=== PATIENT | female | born 1970 | race Caucasian/White ===

== ENCOUNTER 2025-05-30 00:29 | Day surgery (SDC) | payer OTHER, SELFPAY ==
[2025-05-25 10:46] VITALS: BMI 21.2
--- NOTE | 2025-05-25 10:47 | PC.NURSE ---
Report to the Outpatient Waiting Room, entrance under the green pavilion located off [facility], at time _1130_ on date _[id number]_. Planned Procedure Time: _130pm_.? Time changes happen often and if your time is changed the preop area will call you the afternoon before. - You and your visitor will be asked to self-screen and do not enter if you have any COVID symptoms. Please call surgeon if you need to reschedule. - A mask is optional within the hospital at this time. Patients may have clear liquids (water, carbonated beverages, clear teas, apple juice) until 3 hours prior to surgery with a maximum of 20 ounces. - No food from midnight until time of surgery and no smoking, or chewing tobacco (or any form of nicotine). No chewing gum, candy or mints. Take only the following medications with a SIP of water on the morning of surgery: DO NOT STOP ANY OF YOUR OTHER PRESCRIPTION MEDICATIONS PRIOR TO SURGERY EXCEPT THE FOLLOWING Hold all vitamins and supplements for 3 days per anesthesiologist. Medications to discontinue per physician Date to take last dose Please no make-up, nail syriac, hairspray, perfume, deodorant, or body powder the day of surgery.? No jewelry (including any body piercings) or valuables the day of surgery, leave them at home.? Please take a shower or bath the night before, or the morning of, surgery with an antibacterial soap.? Wear comfortable, loose fitting clothing.? - Jewelry must be removed prior to entering the operating room.? Rings and piercings that are not removed may be cut off. - The hospital will not accept responsibility for valuables.? - Please leave all valuables, including medications, at home the day of surgery. If you are going home after surgery, a licensed double bottom driver must drive you home.? - NO public transportation without another adult if you receive anesthesia. - We recommend that an adult stay with you for 24 hours following discharge. - We also recommend that you do not drive, make important decision, drink alcoholic beverages, or take any drugs that were not prescribed by your health care provider for at least 24 hours after your discharge time. Follow any additional instructions given to you from your surgeon. Telephone instructions given to __Johnnyn___and asked if any additional questions and then verbalized understanding. Patient advised to call surgeon office or pre surgery nurse liaison [phone] if any additional questions.
[2025-05-30] VITALS (7 sets, daily range): BP systolic 120–143; BP diastolic 75–82; PULSE 63–74; RESP 14–16; TEMP 36.6–36.8; O2SAT 98–100; BMI 20.1
--- OUTSIDE RECORDS SUMMARY | 2025-05-30 00:32 | XMS_ITS | Referral Summary ---
Author Organization [facility] [address] [place] [address] Care Team Providers Care Scheme Technician Name Role Phone Liang Keturah LINDQUIST Primary Care Provider [phone] Allergies No known active allergies Medications simvastatin (ZOCOR) 10 mg tablet Take 10 mg by mouth nightly Active nebivoloL (BYSTOLIC) 10 mg tablet Bystolic 10 mg tablet Active Active Problems Problem Noted Date Diagnosed Date Seasonal allergic rhinitis due to pollen 022 Assessment & Plan (07/01/2022 7:45 PM CDT): She typically does well with a Kenalog steroid shot. She would like to have that today. I discussed the risks of steroids including the risk of immune suppression, exacerbation of cataracts, potential blood clots and DVTs, hip necrosis and osteoporosis. She understands this. She wanted to and received a steroid shot today. I recommended taking ofck-dvv-citruib allergy medications as needed. Follow-up as needed. Nasal obstruction 07/01/2022 Assessment & Plan (07/01/2022 7:45 PM CDT): She has a pretty clear nasal airway. No recommendations other than potentially trying a steroid nasal spray. 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 Gender Identity Not on file Sexual Orientation Not on file Last Filed Vital Signs Vital Sign Reading Time Taken Comments Blood Pressure - - Pulse - - Temperature 36.8 C (98.3 F) 07/18/2020 8:24 AM CDT Respiratory Rate 18 07/05/2024 4:03 PM CDT Oxygen Saturation - - Inhaled Oxygen Concentration - - Weight 65.8 kg (145 lb) 07/05/2024 4:03 PM CDT Height 170.2 cm (5' 7) 07/05/2024 4:03 PM CDT Body Mass Index 22.71 07/05/2024 4:03 PM CDT Plan of Treatment Not on file [place] [address] [address] CHOICE PLUS [place] [id number] Care Teams Scheme Technician Relationship Specialty Start Date End Date Keturah Tavera NP [address] [place] [id number] PCP - General Nurse Practitioner 07/11/20
--- OUTSIDE RECORDS SUMMARY | 2025-05-30 00:32 | XMS_ITS | Encounter Summary ---
Author Organization [facility] Address 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
--- OUTSIDE RECORDS SUMMARY | 2025-05-30 00:32 | XMS_ITS | Continuity of Care Document ---
Author Organization [facility] Address [address] [place] [address] Phone Care Team Providers Care Waiter/Waitress Cocktail Lounge Name Role Phone Bipin Stark MD, MD Unavailable Unavailable Allergies, Adverse Reactions, Alerts Substance Reaction Status Criticality No Known Allergies Active No Inform ation Medications Medication Instructions Dosage Effective Dates (start - stop) Status Comments METOPROLOL SUCCINATE (unknown strength) Not Available - Active SIMVASTATIN (unknown strength) Not Available - Active INTROVALE (unknown strength) Not Available - No Longer Active Procedures Procedure Date Kenalog 10mg/mL Asp/Injection Intermediate Joint, W/ Ult rasound Office/outpatient visit,est, mod 2021 Global/Postop followup visit Single Hinge Elbow Brace [employer] [place] Arm Sling Global/Postop followup visit Office/outpatient visit,est, mod 2019 Office/outpatient visit,est, mod 2019 Asp/Injection Intermediate Joint, W/ Ult rasound Office/outpatient visit,new, mod 2019 Kenalog Triamcinolone acetonide inj Advance Directives Directive Yes / No Effective Date File Name No Information Encounters Encounter Description Practice Location Reason(s) For Visit Diagnoses Date Provider Providers Copied on Encounter Office/outpa tient visit,est, mod [facility], [address], [id number], [place] tel:[phone] [facility] left elbow pain (chief complaint) Lateral epicondylitis, left elbow May- 2 [address]. [address] [address], [place], [place], [id number] , [place]. 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 [address] [address], [place], [place], [id number] , [place]. tel: [phone] [facility], [address], [id number], [place] [phone] [facility] Lateral epicondylitis, right elbow 1 [address] [facility] [address], [place], [place], [id number] , [place]. 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 [address] [address], [place], [place], [id number] , [place]. tel: [phone] Office/outpa tient visit,est, mod [facility], [address] [address], [place], [place], [id number], [place] tel:[phone] [facility] Outpatient right elbow pain (chief complaint) Lateral epicondylitis, right elbow Dec- 0 [facility] [address] [address], [place], [place], [id number] , [place]. tel: [phone] Referring Provider: Bipin Correa, [address] [address], [place], [address] . tel:[phone] [facility], [address] [address], [place], [place], [id number], [place] [phone] [facility] Lateral epicondylitis, right elbow Dec-2 0 [address] [address], [place], [place], [id number] , [place]. tel:[phone] [facility], [address], [id number], [place] tel:[phone] [facility] Lateral epicondylitis, right elbow Dec-0 [address] [place] [address], [place], [place], [id number] , [place]. tel:[phone] Office/outpa tient visit,[facility], [address] [place] [address], [id number], [place] [phone] [facility] Outpatient right elbow pain (chief complaint) Lateral epicondylitis, right elbow [address], [id number] , [place]. tel: [phone] Referring Provider: Bipin Correa, [address] [place] [address], [place], [address] . tel:[phone] Office/outpa tient visit,[facility], [address], [id number], [place] [phone] [facility] Outpatient right elbow pain (chief complaint) Lateral epicondylitis, right elbow [address] [place] [address], [id number] , [place]. tel: [phone] Family History Family Member Type Diagnosis Age At Onset Problem (finding) Family history of Diabe tae mellitus Problem (finding) Family history of hyper tension Problem (finding) Family history of Lymph sai Payers Payer name Insurance type Covered democrat ID Authoriza tion(s) [facility] [id number] Social History Type Description Quantity Date Captured Comments Alcohol Use Details Caffeine Use Details Unknown Tobacco Use Status Current non-smoker Smoking Status Never smoker Non-Smoking Tobacco Use Details : No Details Available : No Details Available Sex Female Vital Signs Date / Time: Height Weight BMI Pulse Rate Blood Pressure Temperature Respiratory Rate Body Surface Area Head Circumference Head Circ. Percentile Wt./[place]. Percentile BMI percentile Pulse Ox Inhaled Ox 8:39 AM 67.00 in 65.771 kg (145.00 lbs) 22.7 1 kg/m eter (2) 1.76 meter(2) Chief Complaint And Reason For Visit From encounter dated '05/13/2022 09:15'. left elbow pain (chief complaint). Description: Kimberly Costa is a 51 year old female. She is right handed. She is now 18 months from tennis elbow surgery on the right which has done well. She now presents with issues on the left. She presents with pain on the left side. She states that the symptoms have been acute non-traumatic and began 6 months ago. The symptoms occur intermittently. The problemis fluctuating. Currently the patient states that the symptoms are moderate. The pain is described as aching, stabbing, superficial and throbbing. The symptoms occur with activity. The patient is experiencing pain in the following location: lateral region on the left side. The symptoms are aggravated by daily activities, exercise, lifting, repetitive activities, rotation and sports. Kimberly states that the symptoms are relieved by ice, rest and stretching. Pertinent negatives include bruising, fever, joint instability, locking and tingling in the arms. The patient has had a previous x-ray. She has had rest, ice, OTC meds, her home stretching/strengthening program from the other side. Patient has not had any pertinent therapy for this condition. There were no previous episodes. Reason For Referral Reason For Referral No Information Plan Of Treatment Date Type Action Status Referral Ordered: MRI Upper extr joint, w/o contrast RT elbow Appointment date/timeframe: 10/03/2020 ordered Future Order: Lab Order Basic Ri tabolic Panel (BMP), Ordered on: Ordered History Of Present Illness Encounter Date Complaint History Of Prese nt Illness left elbow pain Kimberly Costa is a 51 year old female. She is right handed. She is now 18 months from tennis elbow surgery on the right which has done well. She now presents with issues on the left. She presents with pain on the left side. She states that the symptoms have been acute non-traumatic and began 6 months ago. The symptoms occur intermittently. The problem is fluctuating. Currently the patient states that the symptoms are moderate. The pain is described as aching, stabbing, superficial and throbbing. The symptoms occur with activity. The patient is experiencing pain in the following location: lateral region on the left side. The symptoms are aggravated by daily activities, exercise, lifting, repetitive activities, rotation and sports. Kimberly states that the symptoms are relieved by ice, rest and stretching. Pertinent negatives include bruising, fever, joint instability, locking and tingling in the arms. The patient has had a previous x-ray. She has had rest, ice, OTC meds, her home stretching/strengthening program from the other side. Patient has not had any pertinent therapy for this condition. There were no previous episodes. elbow The patient retu rns 6 weeks from the above procedure. The patient has done well in the interim and notes no wound/skin problems, wound drainage, new neurological complaints, or abnormal swelling/calf pain. They have been compliant with the prescribed weight bearing status per the patient's report and use of the sling. They have progressed well with prescribed physical therapy. elbow The patient retu rns 2 weeks from the above procedure. They note no fevers, chills, night sweats, abnormal swelling or calf pain. They have been compliant with physical therapy guided rehabilitation per their report. They note appropriate use of the sling as instructed. No other immediate post operative issues are noted. right elbow pain She presents wi th pain on the right side. She states that the symptoms have been chronic non-traumatic. The symptoms occur constantly with intermittent worsening. The problem is worse. Currently the patient states that the symptoms are incapacitating. The patient is experiencing pain in the following location: lateral region on the right side. The symptoms are aggravated by daily activities, lifting, repetitive activities and rotation. The patient has had a previous x-ray and MRI. 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 She has had cortisone injection (January 26), physical therapy, icing, OTC meds. right elbow pain The patient not es good relief after a prior cortisone injection in January to the area, but pain has returned. She presents with pain on the right side. The symptoms occur intermittently. Currently the patient states that the symptoms are moderate-severe. The pain is described as aching and sharp. The patient is experiencing pain in the following location: lateral region on the left side. The symptoms are aggravated by daily activities, lifting, repetitive activities and rotation. Kimberly states that the symptoms are relieved by ice, injections, nsaids and physical therapy. Pertinent negatives include decreased mobility, fever, locking, numbness and tingling in the arms. The patient has had a previous x-ray. She has had cortisone injection (January 26), physical therapy, icing, OTC meds. right elbow pain She presents wi th pain on the right side. She states that the symptoms have been acute non-traumatic and began 4 months ago. The symptoms occur intermittently. The problem is fluctuating. Currently the patient states that the symptoms are moderate. The pain is described as aching, stabbing, superficial and throbbing. The symptoms occur with activity. The patient is experiencing pain in the following location: lateral region on the right side. The symptoms are aggravated by daily activities, exercise, lifting, repetitive activities, rotation and sports. Kimberly states that the symptoms are relieved by ice, rest and stretching. Pertinent negatives include bruising, fever, joint instability, locking and tingling in the arms. Prior NSAIDs include prednisone dosepak. She has had no previous treatment. Patient has not had any pertinent therapy for this condition. Patient has had no prior surgeries. There were no previous episodes. Functional Status Date Functional Assessmen t No Information Instructions Date Instruction Additional Infor brandi The patient would li ke to proceed with non op treatments. We discussed the risks, benefits, and alternatives of a minor procedure in the form of an injection. She would like to proceed. A prescription was offered for physical therapy but given her extensive experience she declined and will do the exercises on her own. We discussed instructions on an oral anti-inflammatory with approval of the patient's PCP. Icing instructions were also provided. We discussed the role of counterforce bracing and if indicated this will be provided as well. If not improved in 6 weeks, or sustained relief is not achieved, then she is going to contact me and at that point we would obtain an MRI to confirm the diagnosis and consider PRP vs. surgery. We discussed if symptoms resolve we will see the patient back on an as needed basis. The patient understood, was happy with the plan, and had all questions answered in the office today. Related to Lateral epicondylitis, left elbow They may discontinue the brace at this point and progress to active motion of the elbow. They will WBAT and progress to the strengthening/functional progression phase of physical therapy guided rehabilitation. I would like to see them back in 6-8 weeks for repeat evaluation and likely return to full activities at that time. Questions answered, verbalized understanding. Related to Encounter for other orthopedic aftercare The details of the p rocedure performed we discussed in detail with the patient. We discussed the patient's recovery is on pace with would be typically be expected. Continue the brace at this point and progress through PT per protocol. I would like to see them back in 4 weeks for repeat evaluation and likely return to full activities at that time. Questions answered, verbalized understanding. Related to Encounter for other orthopedic aftercare We discussed the ris ks, benefits, and alternatives to surgery. We discussed in detail the perioperative restrictions, rehabilitation, and expected outcomes for the procedure as well as possible complications including but not limited to: , DVT/PE, heart attack, stroke, other medical complication, infection, injury to nerves, blood vessels, and soft tissues, continued pain, perceived failure of the surgery, and the possible need for further surgery in the future. The patient expressed their understanding and has elected to proceed at their earliest convenience. Medical clearance will be obtained as appropriate. Questions answered, verbalized understanding. Related to Lateral epicondylitis, right elbow Given the failure of traditional treatments with now a year of symptoms we discussed I would like to obtain an MRI of the right elbow to confirm the diagnosis and rule out other pathology, specifically a tear of the ECRB. We discussed the need for continued ice, activity modifications, and over the counter pain medications as allowed by the patient's PCP. I have recommended avoidance of painful occupational, recreational, and daily living activities pending results. I will see the patient back in the office once results are available and we will discuss further treatment options, both non-surgical or surgical, as indicated. Questions answered, verbalized understanding. Related to Lateral epicondylitis, right elbow The patient would li ke to proceed with an injection. A prescription was given for physical therapy and instructions on an oral anti-inflammatory with approval of the patient's PCP. Icing instructions were also provided. We discussed the role of counterforce bracing and if indicated this will be provided as well. The patient will return in 4-6 weeks if not improved or sustained relief is not achieved. We discussed if symptoms resolve we will see the patient back on an as needed basis. The patient understood, was happy with the plan, and had all questions answered in the office today. Related to Lateral epicondylitis, right elbow Assessments Type Assessment Date assessment Lateral epicondylitis, left elbo w impression We discussed in julian pa the symptoms, causes, treatment options, and expected outcomes of the patient's lateral epicondylitis. We discussed the initial non-operative management strategies, including physical therapy and home stretching/strengthening exercises, injections including cortisone and platelet-rich plasma and the pros and cons of each as well as the general limit of two cortisone injections and the rationale for this. We discussed the role of counterforce bracing, and the judicious use of anti-inflammatory medications with the approval of the patient's primary care physician. We discussed that only after the failure of non-operative treatment, which is uncommon, would surgical intervention be indicated, and we discussed the option of arthroscopic vs. open surgery if needed. After a thorough discussion, we have elected to proceed with the following plan. Patient Care Teams Name Effective Dates (start - stop) Status Members No Information
--- OUTSIDE RECORDS SUMMARY | 2025-05-30 00:32 | XMS_ITS | Encounter Summary ---
Author Organization [facility] Address 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
--- OUTSIDE RECORDS SUMMARY | 2025-05-30 00:32 | XMS_ITS | Encounter Summary ---
Author Organization [facility] Address [address] [place] [address] Care Team Providers Care Chief Of Production Name Role Phone Renny Hutchins MD Primary Care Provider Unavailable Encounter Details Date Type Department Care Team (Latest Contact Info) Description 08/12/2000 Outpatient Historical [facility] Sena Salomon MD NO ADDRESS ON FILE Female infertility associated with anovulation (Primary Dx) Social History Tobacco Use Types Packs/Day Years Used Date Smoking Tobacco: Never Assessed Comments Unknown Sex and Gender Information Value Date Recorded Sex Assigned at Not on file Legal Sex Female 3:24 AM [employer] Gender Identity Not on file Sexual Orientation Not on file documented as of this encounter Plan of Treatment Not on file documented as of this encounter Visit Diagnoses Diagnosis Female infertility associated with anovulation- Primary documented in this encounter Care Teams Chief Of Production Relationship Specialty Start Date End Date Renny Hutchins MD NO ADDRESS ON FILE PCP - General 06/09/00 documented as of this encounter
--- OUTSIDE RECORDS SUMMARY | 2025-05-30 00:32 | XMS_ITS | Data Portability ---
Author Organization [facility] , [facility] Address [address] [place] [address] Assessment No assessment recorded. Plan of Treatment Reminders Order Date Submit Date Provider Last Modified By Organization Details Last Modified Time Details Appointments None record ed. Lab None record ed. Referral None record ed. Procedures None record ed. Surgeries None record ed. Imaging None record ed. Medication Orders None record ed. Patient TargetsNo targets recorded. Patient Instructions Encounter Date Encounter Id Patient Instructions Last Modified By Organization Details Last Modified Time 04/29/2023 [id number] A healthy lifestyle: care instructions [email or web address] Not available 04/29/2023 09:21:58 calcium and vitamin D combination [email or web address] Not available 04/29/2023 09:21:58 depression (wome n only) [email or web address] Not available 04/29/2023 09:21:58 eating healthy foods: care instructions [email or web address] Not available 04/29/2023 09:21:58 exercise program : getting started [email or web address] Not available 04/29/2023 09:21:58 breast self-exam : care instructions [id number] Not available 04/29/2023 09:21:58 05/03/2024 [id number] A healthy lifestyle: care instructions [email or web address] Not available 05/03/2024 09:49:35 calcium and vitamin D combination [email or web address] Not available 05/03/2024 09:49:36 depression (wome n only) [id number] Not available 05/03/2024 09:49:35 eating healthy foods: care instructions [email or web address] Not available 05/03/2024 09:49:36 exercise program : getting started [email or web address] Not available 05/03/2024 09:49:36 protect bone wit h calcium and vitamin D [email or web address] Not available 05/03/2024 09:49:35 osteoporosis education [id number] Not available 05/03/2024 09:49:35 breast self-exam : care instructions [email or web address] Not available 05/03/2024 09:49:35 Reason for Referral None Reported. Results Created Date Observation Date Name Description Value Unit Range Abnormal Flag Note LastModifiedBy Organization Detail LastModifiedTime 04/13/2004/13/2023 MAMMO , scree corrie, digit al, bilat eral No observ ation record ed. [email or web address] [facility] [address] [place] [address], [address], 04/13/2023 16:06:14 04/15/20 24 04/14/2024 MAMMO , scree corrie, digit al, bilat eral No observ ation record ed. [facility] [address] [place], [address], 05/02/2024 14:06:22 Result Notes None recorded. Problems No Known Problems Procedures Surgical History Date Name Laterality Status Provider Name and Address Organization Details Recorded Time 06/28/20 24 Urodynamic Testing completed Shantell Menon [facility] 06/28/2024 17:21:21 04/14/20 24 Most Recent Mammogram completed JILL Quigley [address] [facility], [place], [address], [facility] 04/29/2024 12:29:53 04/23/20 22 Date of Last Pap Smear completed Andria Preciado [facility] 08/08/2024 17:06:50 Breast Augmentation completed [facility] 04/22/2023 15:18:10 D & C completed [facility] 04/22/2023 15:18:10 Imaging Results None recorded. Procedure Notes None recorded. Medical Equipment None Reported. Allergies No known drug allergies Medications Name Sig Start Date Stop Date Status Note LastModified by Organization Details LastModified Time esme corral acetonide 0.5 % topical cream APPLY CREAM TOPICALL Y TO AFFECTED AREA TWICE DAILY 04/29 completed Not Available Not Available Not Available oxybutyni n chloride ER 10 mg tablet,ex tended release 24 hr Take 1 tablet every day by oral route. active Not Available Not Available No t Available metoprolo l succinate ER 50 mg tablet,ex tended release 24 hr 25 mg by oral route. active Not Available Not Available No t Available valacyclo vir 1 gram tablet TAKE ONE TABLET BY MOUTH ONCE DAILY active Not Available Not Available No t Available simvastat in 10 mg tablet Take 10 mg by oral route. 08/08 completed Not Available Not Available Not Available paroxetin e 20 mg tablet 05/03 completed Not Available Not Available Not Available simvastat in 20 mg tablet TAKE 1 TABLET BY MOUTH EVERY EVENING active Not Available Not Available No t Available orphenadr ine citrate ER 100 mg tablet,ex tended release TAKE ONE TABLET BY MOUTH TWICE DAILY NEEDED FOR 7 DAYS 06/13 completed Not Available Not Available Not Available buspirone 7.5 mg tablet 04/29 completed Not Available Not Available Not Available methylpre dnisolone 4 mg tablets in a dose pack TAKE BY MOUTH DIRECTED ON INSIDE OF PACKAGE 04/29 completed Not Available Not Available Not Available naproxen 500 mg tablet TAKE ONE TABLET BY MOUTH TWICE DAILY FOR 7 DAYS WITH FOOD 06/13 completed Not Available Not Available Not Available buspirone 15 mg tablet 06/13 completed Not Available Not Available Not Available escitalop lalita 10 mg tablet 06/13 completed Not Available Not Available Not Available Aneta 0.35 mg tablet Take by oral route. 05/03 completed Not Available Not Available Not Available Jolessa 0.15 mg-30 mcg (91) tablets,3 month dose pack Take 1 tablet(s ) by mouth daily as directed . 04/24 completed Jolessa 0.15 mg-30 mcg (91) oral Tablet, Dose Pack, 3 Months RxNorm: 499566 Allow Substitu tion: True Refill Denied: No Edited by: April Pérez ) on 04/26/20 21 Stopped by: April Pérez ) on Not Available Not Available Not Available Jolessa 08/03/ 2016 01/24 /2017 completed Pritijosefinaignacia Extended Cy/30mcg /0.15mg Tablet Allow Substitu tion: True Refill Denied: No Not Available Not Available Not Available Bystolic 5 mg tablet 05/03 completed Bystolic 5 mg oral tablet RxNorm: [id number] Allow Substitu tion: True Refill Denied: No Refill DateOccu rred: 06/11/20 16 Edited by: April Pérez ) on 04/26/20 21 Stopped by: April Pérez ) on Not Available Not Available Not Available Slynd 4 mg (28) tablet Take 1 tablet every day by oral route. 04/28 completed Not Available Not Available Not Available Vitals Date Recorded Body height Body mass index (BMI) Body weight Systolic And Diastolic Provider Name and Address Organization Details Last Updated DateTime 04/29/2023 170.18 cm 24.3 kg/m2 98332.82 g 116/74 mm[Hg] Maria Luisa Shine [facility] 04/29/2023 09:09:51 Date Recorded Body weight Body mass index (BMI) Body height Systolic And Diastolic Provider Name and Address Organization Details Last Updated DateTime 05/03/2024 74339.86 g 23.5 kg/m2 170.18 cm 110/72 mm[Hg] Luana Martinez [facility] 05/03/2024 09:31:18 Date Recorded Body height Body mass index (BMI) Body weight Body temperature Systolic And Diastolic Provider Name and Address Organization Details Last Updated DateTime 06/13/2024 170.18 cm 23.9 kg/m2 71144.9 1 g 97.7 [degF] 120/90 mm[Hg] [facility] 10:26:44 Date Recorded Body height Body mass index (BMI) Body weight Systolic And Diastolic Provider Name and Address Organization Details Last Updated DateTime 08/08/2024 170.18 cm 22.7 kg/m2 15939.89 g 118/68 mm[Hg] Andria Preciado [facility] [employer] [facility] 08/08/2024 17:06:21 Social History Question Answer Notes LastModified by Organizat ion Details LastModified Time Tobacco Smoking Status Never Smoker Maria Luisa Shine [facility], [facility] 04/22/2023 15:18:06 How Many Years Have You Consumed Alcohol? 30 [email or web address] Information not available 04/22/2023 Are You Blind Or Do You Have Difficulty Seeing? No Information not available 05/03/2024 Are You Deaf Or Do You Have Serious Difficulty Hearing? No Information not available 05/03/2024 What Type Of Diet Are You Following? REGULAR [email or web address] Information not available 04/22/2023 How Many Children Do You Have? 1 Information not available 03/30/2022 Are There Any Occupational Health Risks Where You Work? No Information not available 05/03/2024 What Is Your Relationship Status? Information not available 03/30/2022 Are You Sexually Active? Yes Information not available 03/30/2022 What Types Of Sporting Activities Do You Participate In? Swimming And Fitness Classes Information not available 05/03/2024 Sex: Female Functional Status Question Answer Note LastModified by Organizat ion Details LastModified Time Do you use any illicit or recreational drugs? No Information not available 05/03/2024 What is your level of alcohol consumption? Occasional [email or web address] Information not available 04/22/2023 Are you currently employed? 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 Never used electronic cigarettes [email or web address] Information not available 04/22/2023 What is your exercise level? Moderate [email or web address] Information not available 04/22/2023 Mental Status None recorded. Family History Relationship Description Onset Age of this Age Resolved Age Notes LastModified by Organization Details LastModified Time Father Hypertensive disorder [email or web address] Not available 2021 12:48:06 Father Type 2 diabetes mellitus [email or web address] Not available 2023 09:21:56 Father Malignant neoplastic disease [email or web address] Not available 04/22 15:17:51 Medical History Condition Response Other Cancer N High Blood Pressure Y Colon Cancer N Cytomegalovirus N Hyperthyroidism N Breast Cancer N Herpes (HSV) N MRSA N Blood Transfusion N Lung Cancer N Hypothyroidism N Depression N Incontinence N Panic Attacks N Neurological Disorder N Deep Vein Thrombosis N Anxiety Disorder N Autoimmune disease N Arthritis N Shingles N Tuberculosis/Positive PPD N Polycystic Ovarian Syndrome N Cervical Cancer N Chlamydia N Hematuria N Varicosities N Stroke N Crohn's Disease N Seasonal allergies N Alzheimer's/Dementia N COPD/Emphysema N Endometriosis N HPV/Genital Warts N IBS (Irritable Bowel Syndrome) N History of Abnormal Pap N High Cholesterol Y Liver Disease N Fibromyalgia N Kidney Infection N Ulcer N Kidney Disease N HIV N Gallbladder disease N Sickle Cell Disease/Trait N Von Willebrand disease N ADD/ADHD N Eating Disorder N Anemia N Diabetes Mellitus (non-insulin dependent ) N Multiple Sclerosis N Ovarian Problems N Gonorrhea N Frequent Urinary Tract infections N Osteopenia N Headaches/migraines N GERD (reflux) N Ovarian Cancer N Diabetes (insulin dependent) N Seizures/Epilepsy N Fibroids N Asthma N Heart Attack N Lupus N Endometrial Cancer N Rubella N Blood Clotting Disorder N Bipolar Disorder N Diabetes Mellitus (during ) N Ulcerative Colitis N Hepatitis N Heart Disease N Pulmonary Embolism N RPR N Chicken Pox Y Osteoporosis N Gynecological History Statement/Question Response Flow Heavy Date of last HPV 04/23/2022 Frequency of Cycle (Q days) 30 Date of LMP 06/07/2024 Date of Last Pap Smear 04/23/2022 Duration of Flow (days) 6-7 Most Recent Mammogram 04/14/2024 Current Control Method None Age at Menarche 14 Obstetrics History GPAL:G 3 P 1 0 2 1 Type Value Full Term 1 Spontaneous 2 Living 1 Total 3 Past Encounters Encounter ID Performer Location Encounter Start Date Encounter Closed Date Diagnosis/Indication Diagnosis SNOMED-CT Code Diagnosis ICD10 Code Diagnosis Note [id number] JILL Quigley [facility] [address] [place] [address] 04/23/2022 13:57:10 04/23/2022 14:17:27 Surveillance of oral contraception 134967655 Z30.41 Will switch to Progestero ne only method d/t age Gynecologi c examination 35312140 Z01.419 Screening for malignant neoplasm of cervix 585737262 Z12.4 Screening for malignant neoplasm of breast 973520858 Z12.39 Screening for osteoporosis 582712419 Z13.086 [id number] JILL Quigley [facility] [address] [place] [address] 04/29/2023 09:06:14 04/29/2023 09:22:07 Gynecologic examination 26646667 Z01.419 52y.o. here for annual exam.- Pap up to date from 2021, discussed natural course of HPV infection, no new exposures. - Routine labs done with PCP- Mammo UTD- Cologuard UTD- DEXA at age 65- RTO for annual or PRN Screening mammography of bilateral breasts 2549090894 51540 Z12.31 Client advised to perform self-breas t exams and report any changes. Depression screening 171 067875 Z13.31 PHQ9: Negative. Pt educated on normal scoring. No further management needed. [id number] JILL Quigley [facility] [address] [place] [address] 05/03/2024 09:21:55 05/03/2024 09:59:13 Gynecologic examination 23724824 Z01.419 53y.o. here for annual exam.- Pap up to date from 2021, discussed natural course of HPV infection, no new exposures. - Routine labs done with PCP- Mammo UTD- Cologuard UTD- DEXA at age 65- RTO for annual or PRN Screening for osteoporosis 718725448 Z13.820 Depression screening 171 418893 Z13.31 PHQ9: Negative. Pt educated on normal scoring. No further management needed. Screening mammography of bilateral breasts 1901141226 52192 Z12.31 Client advised to perform self-breas t exams and report any changes. Female str ess incontinence 79238436 N39.3 Discussed carmen burroughs Urology referral. Would like to discuss with her PCP to see if there is Urologist in [place]. If not, she will call back for referral [id number] Alonso Blair, [facility] [address] [place] [address] 06/13/2024 10:07:55 06/13/2024 14:37:02 Genuine stress incontinence 93950897 N39.3 Discussed symptomato logy and various treatment options like mesh insertion, Bulkamid procedure. Explained Bulkamid procedure in detail to the patient, all questions answered.A dvised to continue Kegel exercise postproced ure.Schedu le UDT and notify the patient and then schedule Bulkamid/c ysto. [id number] Alonso Blair, DO [facility] [address] [place] [address] 06/28/2024 16:51:29 07/06/2024 14:17:31 Genuine stress incontinence 88925717 N39.3 [id number] Alonso Blair, DO [facility] [address] [place] [address] 08/08/2024 16:52:34 08/09/2024 12:38:20 Postoperative visit 568571145 Z09 The Bulkamid procedure has resulted in significan t improvemen t in her symptoms. However, she continues to experience leakage when her bladder is full. To address this, we will initiate treatment with oxybutynin extended-r elease, which will help to reduce bladder spasms and urgency. The importance of pelvic floor muscle exercises (Kegels) and bladder training was reinforced . The patient was advised that while surgical options exist to further strengthen the urethral sphincter, these procedures carry a risk of urinary retention and are not recommende d at this time. Health Concerns Section Related Observation LastModified by Organization Detai ls LastModified Time None Recorded Concern Status LastModified by Organization Details LastModified Time None Recorded Advance Directives Directive None Recorded Payers Insurance Date Sequence Insurance Name Policy Number Policy Bourne Covered Member ID Bourne Member ID Guarantor Name 08/09/2024 1 [facility] [id number] Kimberly Costa [id number] Kimberly Costa Notes Date Note Type Note Provider Name and Address Organization Details Recorded Time 3 text/html Annual GYNReported bypatient.Urinary symptoms:No hematuria; No incontinence Vulva:No genital lesion Vagina:Normal vaginal discharge Breast:No breast pain; No breast lump; No nipple discharge Sexual complaints:No sexual complaints; No pain during intercourse; Normal libido Menopausal Symptoms:No menopausal symptoms; Normal vaginal lubrication Psychological symptoms:No depression; No anxiety; No PMDD Kimberly is here for her AEX. Her last pap was 04/23/22 Neg/HPV Neg. She is UTD on her mammogram. She had Cologuard performed April Moore JILL [address] [place], [address], [facility] 04/29/2023 09:22:01 4 text/html Annual GYNReported bypatient.Urinary symptoms:No hematuria;Stress incontinence Vulva:No genital lesion Vagina:Normal vaginal discharge Breast:No breast pain; No breast lump; No nipple discharge Sexual complaints:No sexual complaints; No pain during intercourse; Normal libido Menopausal Symptoms:No menopausal symptoms; Normal vaginal lubrication Psychological symptoms:No depression; No anxiety; No PMDD Kimberly is here for her AEX. Her last pap was 04/23/22 Neg/HPV Neg. She is UTD on her mammogram. She had Cologuard performed. She does well on Escitalopram for her anxiety. 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 The patient verbally consented to documentation via virtual scribe for this encounter. Kimberly states she has been struggling with incontinence since she had her kids; about 22 years ago. She reports that her symptoms are getting worse. Alonso Blair DO [address] [facility], [place], [address], [facility] 06/13/2024 12:27:42 4 text/html Here for Uroflow and PVR. See procedure report. Alonso Blair DO [address] [facility], [place], [address], [facility] 06/29/2024 11:51:47 4 text/html Post-OpReported bypatient.Onset/Timing:da te of surgery: (07/21/2024) Quality:procedure: (Cystoscopy with Bulkamid injections) Context:reason for procedure: (Intrinsic sphincter deficiency) Associated Symptoms:incision healing well; no fatigue; normal appetite; normal bowel function; no constipation; no nausea; no emesis; pain improving; no pain; no fever; no bleeding; no lower extremity edema/pain; no dysuria/urinary symptoms The patient verbally consented to documentation via virtual scribe for this encounter. The patient is a female presenting for a follow-up appointment to review the results of her recent Bulkamid injection for stress urinary incontinence. She reports significant improvement in her symptoms, noting that she no longer experiences leakage with exercise, sneezing, or coughing. 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 She denies urinary urgency, frequency, or nocturia. Alonso Blair, DO [facility] [facility], [place], [address], [facility] 08/08/2024 21:12:52 OBGyn Episode No OBEpisode recorded.
--- OUTSIDE RECORDS SUMMARY | 2025-05-30 00:32 | XMS_ITS | Clinical Summary ---
Author Organization [facility] Address [address] [place] [id number] Care Team Providers Care Music Researcher Name Role Phone Danielle Ibrahim PA-C Primary Care Provider [phone] Allergies No known active allergies Medications simvastatin (ZOCOR) 10 MG tablet Take 1 tablet (10 mg total) by mouth nightly at bedtime. Active metoprolol succinate ER (TOPROL-XL) 50 MG 24 hr tablet Take 0.5 tablets (25 mg total) by mouth daily. Active Multiple Vitamin (MULTIVITAMIN ADULT OR) Take 1 tablet by mouth daily. Active Active Problems No known active problems Encounters Date Type Department Care Team Description 05/09/2025 12:34 PM CDT - 05/09/2025 11:59 PM CDT Hospital Encounter [facility] [address] [place] [address] Danielle Ibrahim PA-C Discharge Disposition: Home or Self Care (Routine Discharge) 05/09/2025 Travel from Last 3 Months Family History Medical History Relation Comments Heart Disease Father Lymphoma Father non hodk Hyperlipidemia Mother Relation Status Comments Father Mother Social History Tobacco Use Types Packs/Day Years Used Date Smoking Tobacco: Never Smokeless Tobacco: Never Tobacco Cessation:Counseling Given: Not Answered Alcohol Use Standard Drinks/Week Comments Yes 4 (1 standard drink = 0.6 oz pur e alcohol) Comments No Sex and Gender Information Value Date Recorded Sex Assigned at Not on file Legal Sex Female 7:07 PM CDT Gender Identity Not on file Sexual Orientation Not on file Last Filed Vital Signs Vital Sign Reading Time Taken Comments Blood Pressure 131/85 07/21/2024 1:15 PM CDT Pulse 63 07/21/2024 1:15 PM CDT Temperature 36.6 C (97.8 F) 07/21/2024 1:15 PM CDT Respiratory Rate 17 07/21/2024 1:15 PM CDT Oxygen Saturation 98% 07/21/2024 1:15 PM CDT Inhaled Oxygen Concentration - - Weight 64.5 kg (142 lb 3.2 oz) 07/21/2024 10:15 AM CDT Height 170.2 cm (5' 7) 07/21/2024 10:15 AM CDT Body Mass Index 22.27 07/21/2024 10:15 AM CDT Plan of Treatment Health Maintenance Due Date Last Done Comments Cervical Cancer Screening Pa p Smear (Age 30 to 64) Every 3 Years 1970 Colorectal Cancer Screening Colonoscopy (10 Years) 1970 Annual Physical 1973 Hepatitis C 1988 Hepatitis B Vaccines (1 of 3 - 19+ 3-dose series) 1989 Cervical Cancer Screening Pa p with HPV Testing (Age 30 to 64) Every 5 Years 2000 Cervical Cancer Screening wi th HPV 2000 Mammogram Screening 2010 Pneumococcal Vaccine: 50+ Years (1 of 1 - PCV) 2020 COVID-19 Vaccine ( - 2023-2 5 season) 2024 11/07/2021, 01/19/2021, 12/26/2020 DTaP, Tdap and Td Vaccines ( 2 - Td or Tdap) 06/02/2034 06/02/2024 Zoster Vaccines Completed 09/24/2024, 06/02/2024 Meningococcal B Vaccine Aged Out No l onger eligible based on patient's age to complete this topic Meningococcal Vaccine Aged Out No marcie ladan eligible based on patient's age to complete this topic RSV Immunizations Under 20 Months Aged Out No longer eligible b ased on patient's age to complete this topic Medical Devices Implanted Type [employer] Device Identifier Shelf Expiration Date Model / Serial / Lot Bulkamid Urethra Bulking Agent - [id number] Implanted:Qty: 1 on 07/21/2024 by Alonso Blair DO at [facility] [employer] 01/06/2027 [id number] / / [id number] Procedures Procedure Name Priority Date/Time Associated Diagnosis Comments MRI BREAST CARIN WWO CON BIRAD STAT 05/09/2025 2:33 PM CDT Leakage of breast implant, initial encounter from Last 3 Months Results * MRI BREAST CARIN WWO CON BIRAD (05/09/2025 2:33 PM CDT) Anatomical Region Laterality Modality Breast Bilateral Magnetic Resonan ce 05/10/2025 8:45 AM CDT Impressions 05/10/2025 8:52 AM CDT IMPRESSION: Dense breast tissue. No invasive cancer in the breasts. Intracapsular and extracapsular rupture of the right breast implant. Leaked silicone is contained within the fibrous capsule surrounding the implant. Intracapsular rupture of the left breast implant. No significant leakage of silicone into the fibrous capsule. RECOMMENDATIONS: Annual bilateral screening mammogram in 1 year. High risk screen breast MRI in 1 yr. Consultation for evaluation of bilateral breast implants. ASSESSMENT: ACR BI-RADS CATEGORY 2 - BENIGN FINDING(S) Referred By: DANIELLE IBRAHIM Interpreted By: Mg Singh MD, 05/10/2025 8:45 AM Narrative 05/10/2025 8:52 AM CDT [facility] [address] [place] [address] Examination: MRI BREAST CARIN WWO CON ALONDRAAD Exam time: 05/09/2025 1:27 PM INDICATION:Leakage of right breast implant seen on prior imaging. Evaluate for silicone implant rupture. Evaluate for breast cancer. TECHNIQUE: Multisequence axial images before and after the uneventful administration of 20 mL of Dotarem contrast were obtained. COMPARISON:Dating back to mammogram 04/21/2025 POSTPROCESSING: c-[id number] was used for evaluation of enhancement curves, parenchymal subtraction, and maximum intensity projection imaging. FINDINGS: The breast parenchyma is heterogenous dense. After contrast administration, there is minimal background parenchymal enhancement. No dominant cystic changes. No ductal disease. Left breast: Minimal intracapsular rupture of the of the silicone implant (keyhole sign of folds medially and laterally as seen on series 2 image 53). No evidence of of extracapsular rupture. Trace periimplant effusion contained within the fibrous capsule. No suspicious mass is seen on precontrast imaging. After contrast administration, there is no suspicious enhancement within the left breast. No lymphadenopathy, skin, or nipple abnormalities are identified. Right breast: Intracapsular and extracapsular rupture of the implant with silicone and effusion contained within the fibrous capsule. No suspicious masses seen on precontrast imaging. After contrast administration, there is no suspicious enhancement in the right breast. No lymphadenopathy, skin, or nipple abnormalities are identified. Danielle Ibrahim PA-C MRI Final Resu lt from Last 3 Months Insurance [facility] Care Teams Music Researcher Relationship Specialty Start Date End Date Danielle Ibrahim PA-C [address] [place] [address] [place] [id number] PCP - General PHYSICIAN RATING OFFICER 07/14/24
--- OUTSIDE RECORDS SUMMARY | 2025-05-30 00:32 | XMS_ITS | Data Portability ---
Author Organization [place] - [facility], DIR_[facility] Address [address] [facility] [place] [address] Care Team Providers Care Power Tool Repairer Name Role Phone DANIELLE ACOSTA Primary Care Provider [phone] AISHA BARR Supervisor Shop Assessment No assessment recorded. Plan of Treatment Reminders Order Date Submit Date Provider Last Modified By Organization Details Last Modified Time Details Appointments None recorded. Lab noninvasiv e colorectal cancer DNA + occult blood screening, QL, stool 2024 025 [facility] (Cologuard Orders Only), [address], [address], [place], [address], 5 16:48:01 CMP, serum or plasma 2023 024 [email or web address] [facility], [address], [address], [place], [address], 4 08:49:25 CBC w/ auto diff 2023 024 [email or web address] [facility], [address], [address], [place], [address], 4 08:49:26 lipid panel, serum 2023 024 [email or web address] [facility], [address], [address], [place], [address], 4 08:49:26 TSH + free T4, serum 2023 024 [email or web address] [facility], [address], [place], [address], 4 08:49:26 vitamin D, 25-hydroxy , total, serum 2023 024 [email or web address] [facility], [address], [address], [place], [address], 4 08:49:26 HbA1c (hemoglobi n A1c), blood 2023 024 [email or web address] [facility], [address], [address], [place], [address], 4 08:49:[address] referral - pt sees Dr. Vela; but wants to discuss surgical options for urinary incontinen ce issues 2023 024 [place] [address] Lisa Vela MD, [address] [place], [address], 4 14:08:17 Procedures None recorded. Surgeries None recorded. Imaging None recorded. Medication Orders naproxen 500 mg tablet [email or web address] [facility], [address] [place], [place], [id number], 5 12:29:37 orphenadri ne citrate ER 100 mg tablet,ext ended release [id number] [facility], [address] [place], [place], [id number], 5 12:29:39 simvastati n 20 mg tablet 2022 023 [place], [address] [place] [address], [facility] [address], [place], [place], [id number], 3 14:17:27 buspirone 15 mg tablet 2022 023 REGIN[facility], [address], [address], [place], [place], [id number], 3 14:17:26 Paxil 20 mg tablet 2022 023 [email or web address] [facility], [address], [address], [place], [place], [id number], 5 16:27:43 metoprolol succinate ER 50 mg tablet,ext ended release 24 hr 2022 023 REGIN[facility], [address], [address], [place], [place], [id number], 3 14:17:28 Patient TargetsNo targets recorded. Patient Instructions Encounter Date Encounter Id Patient Instructions Last Modified By Organization Details Last Modified Time 05/21/2023 [id number] advance care planning: care instructions Not available 05/21/2023 14:17:24 advance directives: care instructions Not available 05/21/2023 14:17:24 [place] Advance Directives Not available 05/21/2023 14:17:23 risk assessment* [email or web address] Not availabl e 05/22/2023 10:49:10 Reason for Referral Supervisor Shop Referral for Ur ge incontinence of urine pt sees Dr. Vela; but wants to discuss surgical options for urinary incontinence issues Referring Physician: Danielle Acosta, Family Medicine, Encounter Date: 05/23/2024 Results Created Date Observation Date Name Description Value Unit Range Abnormal Flag Note LastModifiedBy Organization Detail LastModifiedTime 05/06/2005/07/2022 CBC (INCL UDES DIFF/ PLT) white blood cell count 5.0 thous and/u L 3.8-10 .8 normal Not Available [facility] [address] , [place], [address], 05/07/2022 03:59:57 05/06/20 22 05/07/2022 CBC (INCL UDES DIFF/ PLT) red blood cell count 4.01 heriberto on/uL 3.80-5 .10 normal Not Available [address], [address], 05/07/2022 03:59:57 05/06/20 22 05/07/2022 CBC (INCL UDES DIFF/ PLT) hemoglobin 12.1 g/dL 11.7-1 5.5 normal Not Available [address], [address], 05/07/2022 03:59:57 05/06/20 22 05/07/2022 CBC (INCL UDES DIFF/ PLT) hematocrit 37.1 % 35.0-4 5.0 normal Not Available [address], [address], 05/07/2022 03:59:57 05/06/20 22 05/07/2022 CBC (INCL UDES DIFF/ PLT) MCV 92.5 fL 80.0-1 00.0 normal Not Available [address], [address], 05/07/2022 03:59:57 05/06/20 22 05/07/2022 CBC (INCL UDES DIFF/ PLT) MCH 30.2 pg 27.0-3 3.0 normal Not Available [address], [address], 05/07/2022 03:59:57 05/06/20 22 05/07/2022 CBC (INCL UDES DIFF/ PLT) MCHC 32.6 g/dL 32.0-3 6.0 normal Not Available [address], [address], 05/07/2022 03:59:57 05/06/20 22 05/07/2022 CBC (INCL UDES DIFF/ PLT) RDW 11.4 % 11.0-1 5.0 normal Not Available [address], [address], 05/07/2022 03:59:57 05/06/20 22 05/07/2022 CBC (INCL UDES DIFF/ PLT) platelet count 309 thous and/u L 140-40 0 normal Not Available [address], [address], 05/07/2022 03:59:57 05/06/20 22 05/07/2022 CBC (INCL UDES DIFF/ PLT) MPV 10.3 fL 7.5-12 .5 normal Not Available [address], [address], 05/07/2022 03:59:57 05/06/20 22 05/07/2022 CBC (INCL UDES DIFF/ PLT) absolute neutrophils 2820 cells /uL 1500-7 800 normal Not Available [address], [address], 05/07/2022 03:59:57 05/06/20 22 05/07/2022 CBC (INCL UDES DIFF/ PLT) absolute lymphocytes 1470 cells /uL 850-39 00 normal Not Available [address], [address], 05/07/2022 03:59:57 05/06/20 22 05/07/2022 CBC (INCL UDES DIFF/ PLT) absolute monocytes 510 cells /uL 200-95 0 normal Not Available [facility] [address], [address], 05/07/2022 03:59:57 05/06/20 22 05/07/2022 CBC (INCL UDES DIFF/ PLT) absolute eosinophils 160 cells /uL 15-500 normal Not Available [address], [address], 05/07/2022 03:59:57 05/06/20 22 05/07/2022 CBC (INCL UDES DIFF/ PLT) absolute basophils 40 cells /uL 0-200 normal Not Available [facility] [address], [address], 05/07/2022 03:59:57 05/06/20 22 05/07/2022 CBC (INCL UDES DIFF/ PLT) neutrophils 56.4 % normal Not Available [facility] [address], [address], 05/07/2022 03:59:57 05/06/20 22 05/07/2022 CBC (INCL UDES DIFF/ PLT) lymphocytes 29.4 % normal Not Available [facility] [address], [address], 05/07/2022 03:59:57 05/06/20 22 05/07/2022 CBC (INCL UDES DIFF/ PLT) monocytes 10.2 % normal Not Available [facility] [address], [address], 05/07/2022 03:59:57 05/06/20 22 05/07/2022 CBC (INCL UDES DIFF/ PLT) eosinophils 3.2 % normal Not Available [facility] [address], [address], 05/07/2022 03:59:57 05/06/20 22 05/07/2022 CBC (INCL UDES DIFF/ PLT) basophils 0.8 % normal Not Available [facility] [address], [address], 05/07/2022 03:59:57 05/06/2005/07/2022 COMPR EHENS POLA METAB OLIC PANEL creatinine 0.86 mg/dL 0.50-1 .05 normal For patie nts >49 years of age, the refer ence limit for Creat inine is appro ximat jayy 13% highe r for peopl e ident ified as Afric an-Am asuncion n. Not Available [facility] [place] [address] [place], [address], 05/07/2022 03:59:57 05/06/20 22 05/07/2022 COMPR EHENS POLA METAB OLIC PANEL glucose 86 mg/dL 65-99 normal Fasti ng refer ence inter sherry Not Available [address], [address], 05/07/2022 03:59:57 05/06/20 22 05/07/2022 COMPR EHENS POLA METAB OLIC PANEL urea nitrogen (BUN) 13 mg/dL 7-25 normal Not Available [address], [address], 05/07/2022 03:59:57 05/06/20 22 05/07/2022 COMPR EHENS POLA METAB OLIC PANEL eGFR non-afr. gambian 78 mL/mi n/1.7 3m2 > or = 60 normal Not Available [address], [address], 05/07/2022 03:59:57 05/06/20 22 05/07/2022 COMPR EHENS POLA METAB OLIC PANEL eGFR 91 mL/mi n/1.7 3m2 > or = 60 normal Not Available [address], [address], 05/07/2022 03:59:57 05/06/20 22 05/07/2022 COMPR EHENS POLA METAB OLIC PANEL BUN/creatini ne ratio not applic able (calc ) 6-22 Not Available [address], [address], 05/07/2022 03:59:57 05/06/20 22 05/07/2022 COMPR EHENS POLA METAB OLIC PANEL sodium 141 mmol/ L 135-14 6 normal Not Available [address], [address], 05/07/2022 03:59:57 05/06/20 22 05/07/2022 COMPR EHENS POLA METAB OLIC PANEL potassium 4.4 mmol/ L 3.5-5. 3 normal Not Available [address], [address], 05/07/2022 03:59:57 05/06/20 22 05/07/2022 COMPR EHENS POLA METAB OLIC PANEL chloride 105 mmol/ L 98-110 normal Not Available [address], [address], 05/07/2022 03:59:57 05/06/20 22 05/07/2022 COMPR EHENS POLA METAB OLIC PANEL carbon dioxide 29 mmol/ L 20-32 normal Not Available [address], [address], 05/07/2022 03:59:57 05/06/20 22 05/07/2022 COMPR EHENS POLA METAB OLIC PANEL calcium 9.5 mg/dL 8.6-10 .4 normal Not Available [address], [address], 05/07/2022 03:59:57 05/06/20 22 05/07/2022 COMPR EHENS POLA METAB OLIC PANEL protein, total 7.0 g/dL 6.1-8. 1 normal Not Available [address], [address], 05/07/2022 03:59:57 05/06/20 22 05/07/2022 COMPR EHENS POLA METAB OLIC PANEL albumin 4.6 g/dL 3.6-5. 1 normal Not Available [address], [address], 05/07/2022 03:59:57 05/06/20 22 05/07/2022 COMPR EHENS POLA METAB OLIC PANEL globulin 2.4 g/dL_ (calc ) 1.9-3. 7 normal Not Available [address], [address], 05/07/2022 03:59:57 05/06/20 22 05/07/2022 COMPR EHENS POLA METAB OLIC PANEL albumin/glob ulin ratio 1.9 (calc ) 1.0-2. 5 normal Not Available [address], [address], 05/07/2022 03:59:57 05/06/20 22 05/07/2022 COMPR EHENS POLA METAB OLIC PANEL bilirubin, total 0.7 mg/dL 0.2-1. 2 normal Not Available [address], [address], 05/07/2022 03:59:57 05/06/20 22 05/07/2022 COMPR EHENS POLA METAB OLIC PANEL alkaline phosphatase 55 U/L 37-153 normal Not Available [address], [address], 05/07/2022 03:59:57 05/06/20 22 05/07/2022 COMPR EHENS POLA METAB OLIC PANEL AST 22 U/L 10-35 normal Not Available [address], [address], 05/07/2022 03:59:57 05/06/20 22 05/07/2022 COMPR EHENS POLA METAB OLIC PANEL ALT 27 U/L 6-29 normal Not Available [address], [address], 05/07/2022 03:59:57 05/06/20 22 05/07/2022 LIPID PANEL , STAND LLUVIA cholesterol, total 192 mg/dL <200 normal Not Available [address], [address], 05/07/2022 03:59:56 05/06/20 22 05/07/2022 LIPID PANEL , STAND LLUVIA HDL cholesterol 71 mg/dL > or = 50 normal Not Available [facility] [address] [place] [address], [address], 05/07/2022 03:59:56 05/06/20 22 05/07/2022 LIPID PANEL , STAND LLUVIA triglyceride s 84 mg/dL <150 normal Not Available [facility] [address] [place], [address], 05/07/2022 03:59:56 05/06/20 22 05/07/2022 LIPID PANEL , STAND LLUVIA LDL-choleste rol 104 mg/dL _(sherrell c) high Refer ence range : <100 Kuldeep able range <100 mg/dL for prima ry preve ntion ; <70 mg/dL for patie nts with CHD or diabe tic patie nts with > or = 2 CHD risk facto rs. LDL-C is now calcu lated using the Lyly n-Hop kins calcu nithya n, which is a valid ated novel do pace accur acy than the Fried adrián equat ion in the estim ation of LDL-C . Lyly tabares SS et al. KARYN. 2013; 310(1 9): 2061- 2068 (http ://ed ucati on.Qu Michelle InToTally. com/f aq/FA Q164) Not Available [facility] [address] [place] [address], [address], 05/07/2022 03:59:56 05/06/20 22 05/07/2022 LIPID PANEL , STAND LLUVIA chol/HDLC ratio 2.7 (calc ) <5.0 normal Not Available [facility] [address] [place] [address], [address], 05/07/2022 03:59:56 05/06/20 22 05/07/2022 LIPID PANEL , STAND LLUVIA non HDL cholesterol 121 mg/dL _(sherrell c) <130 normal For patie nts with diabe tae plus 1 major ASCVD risk facto r, treat ing to a non-H DL-C goal of <100 mg/dL (LDL- C of <70 mg/dL ) is carmina haynes optio n. Not Available [facility] [employer] [facility] [address] [place], [address], 05/07/2022 03:59:56 05/12/2005/12/2022 COLOG UARD cologuard result reportable negati ve negati ve NEGAT POLA TEST RESUL T. A negat pola Colog uard resul t indic ates a low likel ihood that a color ectal cance r (CRC) or advan oxana adeno ma (moody omato us polyp s with more advan oxana pre-m align ant featu res) is prese nt. The chanc e that a perso n with a negat pola Colog uard test has a color ectal cance r is less than 1 in 1500 (nega tive predi ctive value >99.9 %) or has an advan oxana adeno ma is less than 5.3% (nega tive predi ctive value 94.7% ). These data are based on a prosp ectiv e cross -sect ional study of 10,00 0 indiv idual s at [facility] risk for color ectal cance r who were scree jack with both Colog uard and colon oscop y. (Umm Casey. et al, N Engl J Med 2014; 370(1 4):12 86-12 97) The suzi l value (refe rence range ) for this assay is negat pola. COLOG UARD RE-SC REENI NG RECOM MENDA TION: Perio dic color ectal cance r scree corrie is an impor tant part of preve ntive healt hcare for asymp tomat ic indiv idual s at [facility] risk for color ectal cance r. Follo wing a negat pola Colog uard resul t, the Ameri can Cance r Socie ty and U.S. Multi -Soci ety Task Force scree corrie guide lines recom mend a Colog uard re-sc rajwinder smith inter sherry of 3 years . Refer ences : [place] matthew Cance r Socie ty Guide line for Color ectal Cance r Scree corrie: https ://michelle singh cer.o rg/ca ncer/ colon -rect al-ca ncer/ detec tion- diagn osis- stagi ng/ac s-rec ommen datio ns.ht ml.; Olvin RAMEY, Odilia KAN, Travon QuirozK, Color ectal Cance r Scree corrie: Recom menda tions for Physi cians and Patie nts from the U.S. Multi -Soci ety Task Force on Color ectal Cance r Scree corrie , Slick covarrubiasog y 2017; 112:1 016-1 030. TEST DESCR IPTIO N: Candelaria Arenas site algor ithmi c thai sis of stool DNA-b ioanayeli kers with hemog lobin immun oassa y. Quant itati ve value s of indiv idual bioma rkers are not repor table and are not assoc iated with indiv idual bioma rker resul t refer ence range s. Colog uard is inten ded for color ectal cance r scree corrie of adult s of eithe r sex, 45 years or older , who [facility] for color ectal cance r (CRC) . Colog uard has been appro radha for use by the U.S. FDA. The perfo rmanc e of Colog uard was estab lishe d in a cross secti onal study of [facility] adult s aged 50-84 . Colog uard perfo rmanc e in patie nts ages 45 to 49 years was estim ated by sub-g roup thai sis of near- age group s. Colon oscop ies perfo rmed for a posit pola resul t may find as the most clini jason signi hamlet pendleton n: color ectal cance r [4.0% ], advan oxana adeno ma (incl uding sessi le lanre true polyp s great er than or equal to 1cm diame ter) [20%] or non- advan oxana adeno ma [31%] ; or no color ectal neopl priyanka [45%] . These estim ates are deriv ed from a prosp ectiv e cross -sect ional scree corrie study of , 0 indiv idual s at [facility] risk for color ectal cance r who were scree jack with both Colog uard and colon oscop y. (Umm Ortiz et al, N Engl J Med 2014; 370(1 4):12 86-12 97.) Colog uard may produ ce a false negat pola or false posit pola resul t (no color ectal cance r or preca ncero us polyp prese nt at colon oscop y follo w up). A negat pola Colog uard test resul t does not guara ntee the absen ce of CRC or advan oxana adeno ma (pre- cance r). The curre nt Colog uard scree corrie inter sherry is every 3 years . (Amer ican Cance r Socie ty and U.S. Multi -Soci ety Task Force ). Colog uard perfo rmanc e data in a 0 patie nt pivot al study using colon oscop y as the refer ence metho d can be acces sed at the follo wing locat ion: www.e xactl abs.c om/magy brown . Addit ional descr iptio n of the Colog uard test proce ss, warni ngs and preca ution s can be found at www.c whitney killian.c om. Not Available [facility] (Cologuard Orders Only) [address], [place], [address], 05/16/2022 17:39:54 05/06/20 23 05/12/2023 ADVAN OXANA LIPID PANEL , CARDI O IQ(R) cholesterol, total 192 mg/dL <200 Not Available [facility] [address], [place], [address], 05/12/2023 15:13:24 05/06/20 23 05/12/2023 ADVAN OXANA LIPID PANEL , CARDI O IQ(R) HDL cholesterol 71 mg/dL >49 Not Available [facility] [address] [place], [address], 05/12/2023 15:13:24 05/06/20 23 05/12/2023 ADVAN OXANA LIPID PANEL , CARDI O IQ(R) triglyceride s 113 mg/dL <150 Not Available [facility] [address] [place], [address], 05/12/2023 15:13:24 05/06/20 23 05/12/2023 ADVAN OXANA LIPID PANEL , CARDI O IQ(R) LDL-choleste rol 100 mg/dL _(sherrell c) <100 high Kuldeep able range <100 mg/dL for prima ry preve ntion ; <70 mg/dL for patie nts with CHD or diabe tic patie nts with >= 2 CHD risk facto rs. LDL-C is now calcu lated using the [facility] StreetHub calcu latio n, which is a valid ated novel metho d provi ding angus r accur acy than the Fried adrián equat ion in the estim ation of LDL-C . Lyly n SS et al. KARYN. 2013; 310(1 9): 2061- 206 (http ://ed ati on.IRI [employer]. com/f aq/FA Q164) LDL-C is now calcu lated using the [facility] StreetHub calcu latio n, which is a valid ated novel metho d provi ding angus r accur acy than the Fried adrián equat ion in the estim ation of LDL-C . Lyly tabares SS et al. KARYN. 2013; 310(1 9): 2061- 2068 (http ://ed ati on.IR[employer]. com/f aq/FA Q164) Not Available [facility] [address], [place], [address], 05/12/2023 15:13:24 05/06/20 23 05/12/2023 ADVAN OXANA LIPID PANEL , CARDI O IQ(R) chol/HDLC ratio 2.7 calc <3.6 Not Available [facility] [place] [address] [place], [address], 05/12/2023 15:13:24 05/06/2005/12/2023 ADVAN OXANA LIPID PANEL , CARDI O IQ(R) non HDL cholesterol 121 mg/dL _(sherrell c) <130 For patie nts with diabe tae plus 1 major ASCVD risk facto r, treat ing to a non-H DL-C goal of <100 mg/dL (LDL- C of <70 mg/dL ) is consi dered a thera peuti c optio n. For patie nts with diabe tae plus 1 major ASCVD risk facto r, treat ing to a non-H DL-C goal of <100 mg/dL (LDL- C of <70 mg/dL ) is consi dered a thera peuti c optio n. Not Available [facility] [place] [address] [place], [address], 05/12/2023 15:13:24 05/06/2005/12/2023 ADVAN OXANA LIPID PANEL , CARDI O IQ(R) LDL particle number 1364 nmol/ L <1138 high Relat pola Risk: Optim al <1138 ; Moder ate 1138- 1409; High >1409 . Refer ence Range : <1138 nmol/ L. Not Available [facility] [place] [address] [place], [address], 05/12/2023 15:13:24 05/06/2005/12/2023 ADVAN OXANA LIPID PANEL , CARDI O IQ(R) LDL small 267 nmol/ L <142 high Relat pola Risk: Optim al <142; Moder ate 142-2 19; High >219. Refer ence Range : <142 nmol/ L. Not Available [facility] [place] [address] [place], [address], 05/12/2023 15:13:24 05/06/2005/12/2023 ADVAN OXANA LIPID PANEL , CARDI O IQ(R) LDL medium 322 nmol/ L <215 high Relat pola Risk: Optim al <215; Moder ate 215-3 01; High >301. Refer ence Range : <215 nmol/ L. Not Available [address] [place], [address], 05/12/2023 15:13:24 05/06/20 23 05/12/2023 ADVAN OXANA LIPID PANEL , CARDI O IQ(R) HDL large 6678 nmol/ L >6729 low Relat pola Risk: Optim al >6729 ; Moder ate 6729- 5353; High <5353 . Refer ence Range : >6729 nmol/ L. Not Available [facility] [address] [place], [address], 05/12/2023 15:13:24 05/06/20 23 05/12/2023 ADVAN OXANA LIPID PANEL , CARDI O IQ(R) LDL pattern B patte rn A abnormal Relat pola Risk: Optim al Patte rn A; High Patte rn B. Refer ence Range : Patte rn A. Not Available [facility] [address] [place], [place] [address], [address], 05/12/2023 15:13:24 05/06/2005/12/2023 ADVAN OXANA LIPID PANEL , CARDI O IQ(R) LDL peak size 216.2 angst rom >222.9 low Relat pola Risk: Optim al >222. 9; Moder ate 222.9 -217. 4; High <217. 4. Refer ence Range : >222. 9 Angst rom. Adult cardi ovasc ular event risk categ ory cut point s (opti mal, moder ate, high) are based on an adult U.S. refer ence popul ation plus two large cohor t study popul ation s. Assoc iatio n betwe en lipop rotei n subfr actio ns and cardi ovasc ular event s is based on Angelo winters et al. ATVB. 2009; 29:19 75. For addit ional infor dre pop e refer to http: //edu catio n.Que stDia gnost ics.c om/fa q/FAQ 134 (This link is being provi ded for infor matio nal/e ducat ional purpo ses only. )This test was devuriel baeza and its thai tical perfo rmanc e lacho cteri stics have been deter mined by [facility] [place] [facility] at [facility]. It has not been clear ed or appro radha by the U.S. Food and Drug Admin istra tion. This assay has been valid ated pursu ant to the CLIA regul ation s and is used for clini sherrell purpo ses. Not Available [facility] [place] [address] [place], [address], 05/12/2023 15:13:24 05/06/2005/12/2023 ADVAN OXANA LIPID PANEL , CARDI O IQ(R) apolipoprote in B 91 mg/dL <90 high Risk: Optim al <90 mg/dL ; Moder ate 90-11 9 mg/dL ; High >= 120 mg/dL ; Cardi ovasc ular event risk categ ory cut point s (opti mal, moder ate, high) are based on Natio nal Lipid Assoc iatio n recom kitty coleman - Chalino reyes TA et al. J of Clin Lipid . 2015; 9: 129-1 69 and Tanmay LAM et al. Endoc r Pract . 2017; 23(Mendoza ppl 2):1- 87. Not Available [facility] [place] [address] [place], [address], 05/12/2023 15:13:24 05/06/2005/12/2023 ADVAN OXANA LIPID PANEL , CARDI O IQ(R) lipoprotein (A) 198 nmol/ L <75 high Risk: Optim al <75 nmol/ L; Moder ate 75-12 5 nmol/ L; High >125 nmol/ L. Cardi ovasc ular event risk categ ory cut point s (opti mal, moder ate, high) are based on Liv Hayden. JACC 2017; 69:69 2-711 . Not Available [facility] [place], [address], 05/12/2023 15:13:24 05/06/20 23 05/12/2023 TSH+F REE T4 TSH 2.51 mIU/L normal Refer ence Range > or = 20 Years 0.40- 4.50 Pregn john Range s First trime ster 0.26- 2.66 Secon d trime ster 0.55- 2.73 Third trime ster 0.43- 2.91 Not Available [address], [address], 05/12/2023 15:13:24 05/06/20 23 05/12/2023 TSH+F REE T4 T4, free 1.1 NG/dL 0.8-1. 8 normal Not Available [address], [address], 05/12/2023 15:13:24 05/06/20 23 05/12/2023 COMP METAB OLIC PANEL W/ADJ CALCI UM, PLASM A glucose 90 mg/dL 65-99 normal Fasti ng refer ence inter sherry Not Available [address], [address], 05/12/2023 15:13:25 05/06/20 23 05/12/2023 COMP METAB OLIC PANEL W/ADJ CALCI UM, PLASM A urea nitrogen (BUN) 14 mg/dL 7-25 normal Not Available [address], [address], 05/12/2023 15:13:25 05/06/20 23 05/12/2023 COMP METAB OLIC PANEL W/ADJ CALCI UM, PLASM A creatinine 0.97 mg/dL 0.50-1 .03 normal Not Available [address], [address], 05/12/2023 15:13:25 05/06/20 23 05/12/2023 COMP METAB OLIC PANEL W/ADJ CALCI UM, PLASM A eGFR 70 mL/mi n/1.7 3m2 > or = 60 normal The eGFR is based on the CKD-E PI 2020 equat ion. To calcu late the new eGFR from a previ ous Creat inine or Cysta tin C resul t, go to https ://imchelle florian.alex oconnor/pr ofess ional s/ kdoqi /gfr% 5Fcal culat or Not Available [address], [id number], 05/12/2023 15:13:25 05/06/20 23 05/12/2023 COMP METAB OLIC PANEL W/ADJ CALCI UM, PLASM A BUN/creatini ne ratio NOT APPLIC ABLE (calc ) 6-22 Not Available [address], [id number], 05/12/2023 15:13:25 05/06/20 23 05/12/2023 COMP METAB OLIC PANEL W/ADJ CALCI UM, PLASM A sodium 140 mmol/ L 135-14 6 normal Not Available [address], [address], 05/12/2023 15:13:25 05/06/20 23 05/12/2023 COMP METAB OLIC PANEL W/ADJ CALCI UM, PLASM A potassium 4.4 mmol/ L 3.4-4. 8 normal Not Available [address], [address], 05/12/2023 15:13:25 05/06/20 23 05/12/2023 COMP METAB OLIC PANEL W/ADJ CALCI UM, PLASM A chloride 103 mmol/ L 98-110 normal Not Available [address], [address], 05/12/2023 15:13:25 05/06/20 23 05/12/2023 COMP METAB OLIC PANEL W/ADJ CALCI UM, PLASM A carbon dioxide 27 mmol/ L 20-32 normal Not Available [address], [address], 05/12/2023 15:13:25 05/06/20 23 05/12/2023 COMP METAB OLIC PANEL W/ADJ CALCI UM, PLASM A calcium 9.5 mg/dL 8.6-10 .4 normal Not Available [address], [address], 05/12/2023 15:13:25 05/06/20 23 05/12/2023 COMP METAB OLIC PANEL W/ADJ CALCI UM, PLASM A calcium (adjusted for albumin) 9.4 mg/dL _(sherrell c) 8.6-10 .2 normal Not Available [address], [address], 05/12/2023 15:13:25 05/06/20 23 05/12/2023 COMP METAB OLIC PANEL W/ADJ CALCI UM, PLASM A protein, total 7.3 g/dL 6.4-8. 4 normal Not Available [address], [address], 05/12/2023 15:13:25 05/06/20 23 05/12/2023 COMP METAB OLIC PANEL W/ADJ CALCI UM, PLASM A albumin 4.6 g/dL 3.6-5. 1 normal Not Available [address], [address], 05/12/2023 15:13:25 05/06/20 23 05/12/2023 COMP METAB OLIC PANEL W/ADJ CALCI UM, PLASM A globulin 2.7 g/dL_ (calc ) 2.2-4. 0 normal Not Available [address], [address], 05/12/2023 15:13:25 05/06/20 23 05/12/2023 COMP METAB OLIC PANEL W/ADJ CALCI UM, PLASM A albumin/glob ulin ratio 1.7 (calc ) 0.9-2. 3 normal Not Available [address], [address], 05/12/2023 15:13:25 05/06/20 23 05/12/2023 COMP METAB OLIC PANEL W/ADJ CALCI UM, PLASM A bilirubin, total 0.4 mg/dL 0.2-1. 2 normal Not Available [address], [address], 05/12/2023 15:13:25 05/06/20 23 05/12/2023 COMP METAB OLIC PANEL W/ADJ CALCI UM, PLASM A alkaline phosphatase 48 U/L 37-153 normal Not Available [address], [address], 05/12/2023 15:13:25 05/06/20 23 05/12/2023 COMP METAB OLIC PANEL W/ADJ CALCI UM, PLASM A AST 18 U/L 10-35 normal Not Available [address], [address], 05/12/2023 15:13:25 05/06/20 23 05/12/2023 COMP METAB OLIC PANEL W/ADJ CALCI UM, PLASM A ALT 13 U/L 6-29 normal Not Available [address], [address], 05/12/2023 15:13:25 05/06/20 23 05/12/2023 CBC (INCL UDES DIFF/ PLT) white blood cell count 5.0 thous and/u L 3.8-10 .8 normal Not Available [address], [address], 05/12/2023 15:13:25 05/06/20 23 05/12/2023 CBC (INCL UDES DIFF/ PLT) red blood cell count 4.27 heriberto on/uL 3.80-5 .10 normal Not Available [address], [address], 05/12/2023 15:13:25 05/06/2005/12/2023 CBC (INCL UDES DIFF/ PLT) hemoglobin 12.9 g/dL 11.7-1 5.5 normal Not Available [address], [address], 05/12/2023 15:13:25 05/06/20 23 05/12/2023 CBC (INCL UDES DIFF/ PLT) hematocrit 39.6 % 35.0-4 5.0 normal Not Available [address], [address], 05/12/2023 15:13:25 05/06/20 23 05/12/2023 CBC (INCL UDES DIFF/ PLT) MCV 92.7 fL 80.0-1 00.0 normal Not Available [address], [address], 05/12/2023 15:13:25 05/06/20 23 05/12/2023 CBC (INCL UDES DIFF/ PLT) MCH 30.2 pg 27.0-3 3.0 normal Not Available [address], [address], 05/12/2023 15:13:25 05/06/20 23 05/12/2023 CBC (INCL UDES DIFF/ PLT) MCHC 32.6 g/dL 32.0-3 6.0 normal Not Available [address], [address], 05/12/2023 15:13:25 05/06/20 23 05/12/2023 CBC (INCL UDES DIFF/ PLT) RDW 11.7 % 11.0-1 5.0 normal Not Available [address], [address], 05/12/2023 15:13:25 05/06/20 23 05/12/2023 CBC (INCL UDES DIFF/ PLT) platelet count 323 thous and/u L 140-40 0 normal Not Available [address], [address], 05/12/2023 15:13:25 05/06/20 23 05/12/2023 CBC (INCL UDES DIFF/ PLT) MPV 10.2 fL 7.5-12 .5 normal Not Available [address], [address], 05/12/2023 15:13:05/06/20 23 05/12/2023 CBC (INCL UDES DIFF/ PLT) absolute neutrophils 2895 cells /uL 1500-7 800 normal Not Available [address], [address], 05/12/2023 15:13:25 05/06/20 23 05/12/2023 CBC (INCL UDES DIFF/ PLT) absolute lymphocytes 1305 cells /uL 850-39 00 normal Not Available [address], [address], 05/12/2023 15:13:25 05/06/20 23 05/12/2023 CBC (INCL UDES DIFF/ PLT) absolute monocytes 490 cells /uL 200-95 0 normal Not Available [address], [address], 05/12/2023 15:13:25 05/06/20 23 05/12/2023 CBC (INCL UDES DIFF/ PLT) absolute eosinophils 250 cells /uL 15-500 normal Not Available [address], [address], 05/12/2023 15:13:25 05/06/20 23 05/12/2023 CBC (INCL UDES DIFF/ PLT) absolute basophils 60 cells /uL 0-200 normal Not Available [address] [place], [address], 05/12/2023 15:13:25 05/06/20 23 05/12/2023 CBC (INCL UDES DIFF/ PLT) neutrophils 57.9 % normal Not Available [facility] [address], [address], 05/12/2023 15:13:25 05/06/20 23 05/12/2023 CBC (INCL UDES DIFF/ PLT) lymphocytes 26.1 % normal Not Available [facility] [address], [address], 05/12/2023 15:13:25 05/06/20 23 05/12/2023 CBC (INCL UDES DIFF/ PLT) monocytes 9.8 % normal Not Available [facility] [address], [address], 05/12/2023 15:13:25 05/06/20 23 05/12/2023 CBC (INCL UDES DIFF/ PLT) eosinophils 5.0 % normal Not Available [facility] [address], [address], 05/12/2023 15:13:25 05/06/20 23 05/12/2023 CBC (INCL UDES DIFF/ PLT) basophils 1.2 % normal Not Available [facility] [address], [address], 05/12/2023 15:13:25 04/13/2004/14/2025 TSH+F REE T4 TSH 2.51 mIU/L normal Refer ence Range > or = 20 Years 0.40- 4.50 Pregn john Range s First trime ster 0.26- 2.66 Secon d trime ster 0.55- 2.73 Third trime ster 0.43- 2.91 Not Available [facility] [address], [address], 04/14/2025 08:04:29 04/13/20 25 04/14/2025 TSH+F REE T4 T4, free 1.1 NG/dL 0.8-1. 8 normal Not Available [address], [address], 04/14/2025 08:04:29 04/13/20 25 04/14/2025 LIPID PANEL , STAND LLUVIA cholesterol, total 147 mg/dL <200 normal Not Available [address], [address], 04/14/2025 08:04:30 04/13/20 25 04/14/2025 LIPID PANEL , STAND LLUVIA HDL cholesterol 56 mg/dL > or = 50 normal Not Available [address], [address], 04/14/2025 08:04:30 04/13/20 25 04/14/2025 LIPID PANEL , STAND LLUVIA triglyceride s 93 mg/dL <150 normal Not Available [address], [address], 04/14/2025 08:04:30 04/13/2004/14/2025 LIPID PANEL , STAND LLUVIA LDL-choleste rol 73 mg/dL _(sherrell c) normal Refer ence range : <100 Kuldeep able range <100 mg/dL for prima ry preve ntion ; <70 mg/dL for patie nts with CHD or diabe tic patie nts with > or = 2 CHD risk facto rs. LDL-C is now calcu lated using the Lyly n-Hop kins calcu latmayra n, which is a valid ated novel do mi than the Fried adrián equat ion in the estim ation of LDL-C . Lyly tabares SS et al. KARYN. 2013; 310(1 9): 2061- 2068 (http ://ed ucati on.Qu estDi [employer] tics. com/f aq/FA Q164) Not Available [address], [address], 04/14/2025 08:04:30 04/13/20 25 04/14/2025 LIPID PANEL , STAND LLUVIA chol/HDLC ratio 2.6 (calc ) <5.0 normal Not Available [address], [address], 04/14/2025 08:04:30 04/13/20 25 04/14/2025 LIPID PANEL , STAND LLUVIA non HDL cholesterol 91 mg/dL _(sherrell c) <130 normal For patie nts with diabe tae plus 1 major ASCVD risk facto r, treat ing to a non-H DL-C goal of <100 mg/dL (LDL- C of <70 mg/dL ) is carmina haynes optio n. Not Available [address], [address], 04/14/2025 08:04:30 04/13/20 25 04/14/2025 COMPR EHENS POLA METAB OLIC PANEL glucose 78 mg/dL 65-99 normal Fasti ng refer ence inter sherry Not Available [address], [address], 04/14/2025 08:04:30 04/13/20 25 04/14/2025 COMPR EHENS POLA METAB OLIC PANEL urea nitrogen (BUN) 14 mg/dL 7-25 normal Not Available [facility] [address], [address], 04/14/2025 08:04:30 04/13/20 25 04/14/2025 COMPR EHENS POLA METAB OLIC PANEL creatinine 0.75 mg/dL 0.50-1 .03 normal Not Available [facility] [address], [address], 04/14/2025 08:04:30 04/13/20 25 04/14/2025 COMPR EHENS POLA METAB OLIC PANEL eGFR 95 mL/mi n/1.7 3m2 > or = 60 normal Not Available [address], [address], 04/14/2025 08:04:30 04/13/20 25 04/14/2025 COMPR EHENS POLA METAB OLIC PANEL BUN/creatini ne ratio SEE NOTE: (calc ) 6-22 Not Repor true: BUN and Creat inine are withi n refer ence range . Not Available [address], [address], 04/14/2025 08:04:30 04/13/20 25 04/14/2025 COMPR EHENS POLA METAB OLIC PANEL sodium 138 mmol/ L 135-14 6 normal Not Available [address], [address], 04/14/2025 08:04:30 04/13/20 25 04/14/2025 COMPR EHENS POLA METAB OLIC PANEL potassium 4.6 mmol/ L 3.5-5. 3 normal Not Available [address], [address], 04/14/2025 08:04:30 04/13/20 25 04/14/2025 COMPR EHENS POLA METAB OLIC PANEL chloride 103 mmol/ L 98-110 normal Not Available [address], [address], 04/14/2025 08:04:30 04/13/20 25 04/14/2025 COMPR EHENS POLA METAB OLIC PANEL carbon dioxide 28 mmol/ L 20-32 normal Not Available [address], [address], 04/14/2025 08:04:30 04/13/20 25 04/14/2025 COMPR EHENS POLA METAB OLIC PANEL calcium 8.9 mg/dL 8.6-10 .4 normal Not Available [address], [address], 04/14/2025 08:04:30 04/13/20 25 04/14/2025 COMPR EHENS POLA METAB OLIC PANEL protein, total 6.6 g/dL 6.1-8. 1 normal Not Available [address], [address], 04/14/2025 08:04:30 04/13/20 25 04/14/2025 COMPR EHENS POLA METAB OLIC PANEL albumin 4.5 g/dL 3.6-5. 1 normal Not Available [address], [address], 04/14/2025 08:04:30 04/13/20 25 04/14/2025 COMPR EHENS POLA METAB OLIC PANEL globulin 2.1 g/dL_ (calc ) 1.9-3. 7 normal Not Available [address], [address], 04/14/2025 08:04:30 04/13/20 25 04/14/2025 COMPR EHENS POLA METAB OLIC PANEL albumin/glob ulin ratio 2.1 (calc ) 1.0-2. 5 normal Not Available [address], [address], 04/14/2025 08:04:30 04/13/2004/14/2025 COMPR EHENS POLA METAB OLIC PANEL bilirubin, total 0.5 mg/dL 0.2-1. 2 normal Not Available [address], [address], 04/14/2025 08:04:30 04/13/20 25 04/14/2025 COMPR EHENS POLA METAB OLIC PANEL alkaline phosphatase 55 U/L 37-153 normal Not Available [address], [address], 04/14/2025 08:04:30 04/13/20 25 04/14/2025 COMPR EHENS POLA METAB OLIC PANEL AST 15 U/L 10-35 normal Not Available [facility] [address] [place], [address], 04/14/2025 08:04:30 04/13/20 25 04/14/2025 COMPR EHENS POLA METAB OLIC PANEL ALT 9 U/L 6-29 normal Not Available [facility] [place] [address] [facility] [place], [address], 04/14/2025 08:04:30 04/13/20 25 04/14/2025 HEMOG LOBIN A1C hemoglobin A1C 5.4 %_of_ total _HGB <5.7 normal For the purpo se of scredinesh vorag for the prese nce of diabe tae: <5.7% Consi stent with the absen ce of diabe tae 5.7-6 .4% Consi stent with incre ased risk for diabe tae (pred iabet es) > or =6.5% Consi stent with diabe tae This assay resul t is consi stent with a decre ased risk of diabe tae. Curre ntly, no conse nsus exist s yuri mauricio use of hemog lobin A1c for diagn osis of diabe tae in child julianne. Accor ding to Ameri can Diabe tae Assoc iatio n (ADA) guide lines , hemog lobin A1c <7.0% repre sents optim al contr ol in non-p regna nt diabe tic patie nts. Diffe rent metri cs may apply to speci fic patie nt popul ation s. Stand ards of Medic al Care in Diabe tae(A DA). Not Available [facility] [address] [place], [address], 04/14/2025 08:04:30 04/13/20 25 04/14/2025 VITAM IN D,25- OH,TO SLIM,I A vitamin D,25-oh,tota l,ia 39 NG/mL 30-100 normal Vitam in D Statu s 25-OH Vitam in D: Defic iency : <20 ng/mL Insuf ficie ncy: 20 - 29 ng/mL Optim al: > or = 30 ng/mL For 25-OH Vitam in D testi ng on patie nts on D2-mendoza pplem entat ion and patie nts for whom quant itati on of D2 and D3 fract ions is requi red, the [facility] e[facility](TM ) 25-OH VIT D, (D2,D 3), LC/MS /MS is recom will d: order code 97285 (lam ents >2yrs ). See Note 1 Note 1 For addit ional infor dre pop e refer to http: //[facility] jaye mendoza ics.c om/fa q/FAQ 199 (This link is being provi ded for infor greta hickman/ educignacia mooney purpo ses only. ) Not Available [address], [address], 04/14/2025 08:04:31 04/13/2004/14/2025 CBC (INCL UDES DIFF/ PLT) white blood cell count 6.1 thous and/u L 3.8-10 .8 normal Not Available [address], [address], 04/14/2025 08:04:31 04/13/2004/14/2025 CBC (INCL UDES DIFF/ PLT) red blood cell count 4.07 heriberto on/uL 3.80-5 .10 normal Not Available [address], [address], 04/14/2025 08:04:31 04/13/2004/14/2025 CBC (INCL UDES DIFF/ PLT) hemoglobin 12.3 g/dL 11.7-1 5.5 normal Not Available [address], [address], 04/14/2025 08:04:31 04/13/20 25 04/14/2025 CBC (INCL UDES DIFF/ PLT) hematocrit 37.7 % 35.0-4 5.0 normal Not Available [address], [address], 04/14/2025 08:04:31 04/13/2004/14/2025 CBC (INCL UDES DIFF/ PLT) MCV 92.6 fL 80.0-1 00.0 normal Not Available [facility] [address], [address], 04/14/2025 08:04:31 04/13/2004/14/2025 CBC (INCL UDES DIFF/ PLT) MCH 30.2 pg 27.0-3 3.0 normal Not Available [address], [address], 04/14/2025 08:04:31 04/13/2004/14/2025 CBC (INCL UDES DIFF/ PLT) MCHC 32.6 g/dL 32.0-3 6.0 normal For adult s, a sligh t decre ase in the calcu lated MCHC value (in the range of 30 to 32 g/dL) is most likel y not clini jason signi hamlet t; julieta er, it shoul d be inter prete d with cauti on in [facility] n with other red cell vane eters and the patie nt's clini sherrell condi tion. Not Available [address], [address], 04/14/2025 08:04:31 04/13/2004/14/2025 CBC (INCL UDES DIFF/ PLT) RDW 11.9 % 11.0-1 5.0 normal Not Available [facility] [address], [address], 04/14/2025 08:04:31 04/13/2004/14/2025 CBC (INCL UDES DIFF/ PLT) platelet count 312 thous and/u L 140-40 0 normal Not Available [facility] [place] [address] [address], [place], [address], 04/14/2025 08:04:31 04/13/2004/14/2025 CBC (INCL UDES DIFF/ PLT) MPV 9.7 fL 7.5-12 .5 normal Not Available [address], [address], 04/14/2025 08:04:31 04/13/2004/14/2025 CBC (INCL UDES DIFF/ PLT) absolute neutrophils 3922 cells /uL 1500-7 800 normal Not Available [facility] [address], [address], 04/14/2025 08:04:31 04/13/2004/14/2025 CBC (INCL UDES DIFF/ PLT) absolute lymphocytes 1312 cells /uL 850-39 00 normal Not Available [address], [address], 04/14/2025 08:04:31 04/13/2004/14/2025 CBC (INCL UDES DIFF/ PLT) absolute monocytes 543 cells /uL 200-95 0 normal Not Available [address], [address], 04/14/2025 08:04:31 04/13/2004/14/2025 CBC (INCL UDES DIFF/ PLT) absolute eosinophils 281 cells /uL 15-500 normal Not Available [address], [address], 04/14/2025 08:04:31 04/13/2004/14/2025 CBC (INCL UDES DIFF/ PLT) absolute basophils 43 cells /uL 0-200 normal Not Available [address], [address], 04/14/2025 08:04:31 04/13/20 04/14/2025 CBC (INCL UDES DIFF/ PLT) neutrophils 64.3 % normal Not Available [address], [address], 04/14/2025 08:04:31 04/13/2004/14/2025 CBC (INCL UDES DIFF/ PLT) lymphocytes 21.5 % normal Not Available [address], [address], 04/14/2025 08:04:31 04/13/2004/14/2025 CBC (INCL UDES DIFF/ PLT) monocytes 8.9 % normal Not Available [address], [address], 04/14/2025 08:04:31 04/13/2004/14/2025 CBC (INCL UDES DIFF/ PLT) eosinophils 4.6 % normal Not Available [address], [address], 04/14/2025 08:04:31 04/13/2004/14/2025 CBC (INCL UDES DIFF/ PLT) basophils 0.7 % normal Not Available [address], [address], 04/14/2025 08:04:31 05/26/2005/26/2025 EKG 12 LEADS ekg12l [facility] [address] [place] [facility] [place] [address] Test Date: 05-26 Pat Name: KIMBERLY MILLER Viviane Ma tment : KIMBERLY Patidinesh nt ID: [id number] Room: [facility] r: Techn ician : mi : 07-17 Reque sted By: pierre Alvarez Numbe r: [id number] [phone] Eleanor smith MD: Measu remethel ts Inter vals [place] Rate: 69 P: 73 FL: 153 QRS: 60 QRSD: 91 T: 65 QT: 390 QTc: 418 Inter preti ve State ments Sinus rhyth m Proba ble left atria l enlar gemen t Not Available [facility] [address] [place] [address], [address], 05/26/2025 10:36:20 05/26/20 25 05/26/2025 EKG 12 LEADS ekg12l [facility] [address] [place] [address] Test Date: 05-26 Pat Name: KIMBERLY Ma tment : KIMBERLY Paloma nt ID: [id number] Room: [facility] r: F Techn ician : mi : 07-17 Reque sted By: pierre Alvarez Numbe r: [id number] [phone] Eleanor smith MD: Denisse Sánchezu remethel ts Inter vals [place] Rate: 69 P: 73 FL: 153 QRS: 60 QRSD: 91 T: 65 QT: 390 QTc: 418 Inter preti ve State ments Sinus rhyth m Proba ble left atria l enlar gemen t Elect lizzie zhang On 05-26 23:10 :44 CDT by Denisse lewis Not Available [facility] [address] [place] [address], [address], 05/27/2025 00:11:00 04/10/20 22 MAMMO , scree corrie, tomos ynthe sis, bilat eral No observ ation record ed. [id number] Not Available 02/25/2023 00:42:07 04/13/20 23 04/13/2023 MAMMO , scree corrie, tomos ynthe sis, bilat eral [address] [id number] [phone] MAMMOG LALITA REPORT Name: KIMBERLY COSTA Room #: : 1969 Accoun t #: [id number] Bed #: Age: 52 Years Patien t Type: Outpat ient Order Date/T yulissa: 2022 08:30: 12 AM Sex: F Access ion#: Exam Descri ption: Exam Reason : [id number] MG SCRN BREAST JANICE, B Z1231 Dictat ed By: Darian Chavez Physic bob: TD VELA Attend ing Physic bob: TD VELA E Primar y Care Physic bob: RAMESH JULIAN LY EXAMIN ATION: MG SCRN BREAST JANICE, BILAT Date: 04/13/20 8:30 AM CDT CLINIC AL HISTOR Y: 52 years Female ,[id number] COMPAR MAGAN: Multip le prior mammog nicolasa with the most recent dated 04/10/20 TECHNI QUE: 2-D and 3-D digita l mammog larisa perfor med bilate rally in the MLO and CC projec tions with CAD FINDIN GS: The fibrog landul ar parenc hymal patter n is hetero geneou sly dense. Bilate ral subpec jeremy breast implan ts are in place and intact . No domina nt mass, davida ectura l distor tion or calcif icatio ns of the malign ant type. IMPRES REJI: NO MAMMOG RAPHIC EVIDEN CE OF MALIGN JONH. THEREF ORE, CONTIN UED ROUTIN E ANNUAL MAMMOG LALITA SCREEN ING IS RECOMM ENDED UNLESS PAGE 1 OF 2 MAMMOG LALITA REPORT Name: KIMBERLY COSTA Room #: : 1969 Accted t #: [id number] Bed #: Age: 52 Years Patien t Type: Outpat ient Order Date/T yulissa: 2022 08:30: 12 AM Sex: F CLINIC ALLY INDICA TRUE SOONER . ACR Birads Catego ry: 1 - Negati ve. Electr onical ly signed by: Darian roa MD 04/13/20 2:44 PM CDT Workst ation: [id number] PAGE 2 OF [address], [address], 05/21/2023 14:21:07 04/15/20 24 04/14/2024 MAMMO , selene denton, natan yalton sis, bilat [address] [address] MAMMOG LALITA REPORT Name: KIMBERLY COSTA Room #: : 1969 Sandee t #: [id number] Bed #: Age: 53 Years Patien t Type: Outpat ient Order Date/T yulissa: 2023 08:44: 00 AM Sex: F Access ion#: Exam Descri ption: Exam Reason : [id number] MG SCRN BREAST JANICE, B screen ing Dictat ed By: Ronnie Chavez Physic bob: TD VELA Attend ing Physic bob: TD VELA E Primar y Care Physic bob: DANIELLE PILLAI EXAMIN ATION: MG SCRN BREAST JANICE, BILAT Date: 04/14/20 24 8:44 AM CDT CLINIC AL HISTOR Y: 53 years Female ,scree corrie COMPAR MAGAN: Multip le prior mammog nicolasa with the most recent dated 04/13/20 TECHNI QUE: 2-D and 3-D digita l mammog larisa perfor med bilate rally in the MLO and CC projec tions withou t and with implan t displa cement techni que. The study is interp reted with the assist ancdinesh of CAD. HELMS GS: The fibrog landul ar parenc hymal patter n is hetero geneou sly dense. Bilate ral subpec jeremy breast implan ts remain in place and intact . No domina nt mass, davida ectura l distor tion or calcif icatio ns of the malign ant type. The breast cancer lifeti me risk score is 11.6% (Jacqueline model) . PAGE 1 OF 2 MAMMOG LALITA REPORT Name: KIMBERLY COSTA Room #: : 1969 Accoun t #: [id number] Bed #: Age: 53 Years Patien t Type: Outpat ient Order Date/T yulissa: 2023 08:44: 00 AM Sex: F IMPRES REJI: NO MAMMOG RAPHIC EVIDEN CE OF MALIGN JOHN. THEREF ORE, CONTIN UED ROUTIN E ANNUAL MAMMOG LALITA SCREEN ING IS RECOMM ENDED UNLESS CLINIC ALLY INDICA TRUE SOONER . ACR Birads Catego ry: 1 - Negati ve. Electr onical ly signed by: Ronnie roa MD 2023 08:21 AM CDT RP Workst ation: [id number] PAGE 2 OF [address], [address], 04/15/2024 14:20:31 04/21/20 25 04/21/2025 MAMMO , selene denton, tomos ynthe sis, bilat eral [address] [id number] [phone] MAMMOG LALITA REPORT Name: KIMBERLY COSTA Room #: : 1969 Accoun t #: [id number] Bed #: Age: 54 Years Patien t Type: Outpat ient Order Date/T yulissa: 2024 09:41: 00 AM Sex: F Access ion#: Exam Descri ption: Exam Reason : [id number] MG SCRN BREAST JANICE, B z1231 Dictat ed By: Ronnie Chavez Physic bob: DANIELLE PILLAI Attend ing Physic bob: ELIZABETH AN DANIELLE A Primar y Care Physic bob: HARRZEFERINO AN, DANIELLE A EXAMIN ATION: MG SCRN BREAST JANICE, BILAT Date: 025 9:41 AM CDT CLINIC AL HISTOR Y: 54 years Female ,[id number] COMPAR MAGAN: Multip le prior mammog nicolasa with the most recent dated 04/14/20 24 TECHNI QUE: 2-D and 3-D digita l mammog larisa perfor med bilate rally in the MLO and CC projec tions withou t and with implan t displa cement techni que. The study is interp reted with the assist ancdinesh of CAD. FINDIN GS: The breast s are hetero geneou sly dense, which may obscur e small masses . Bilate ral subpec jeremy breast implan ts remain in place and intact . Partia lly obscur ed 4.4 mm round nodule flat knitter helper ior one third right breast upper outer quadra nt 6.9 cm from the nipple at 9 o'cloc k. No domina nt mass, davida ectura l distor tion or calcif icatio ns of the malign ant type. PAGE 1 OF 2 MAMMOG LALITA REPORT Name: KIMBERLY COSTA Room #: : 1969 Accoun t #: [id number] Bed #: Age: 54 Years Patien t Type: Outpat ient Order Date/T yulissa: 2024 09:41: 00 AM Sex: F The breast cancer lifeti me risk score is 11.4% (Jacqueline model) . IMPRES REJI: Partia lly obscur ed 4.4 mm right breast nodule . Recomm end right MLO and CC focal spot compre ssion views follow ed by a soco d right breast sonogr am. The left breast demons trates no mammog raphic eviden ce of malign john. ACR Birads Catego ry: 0 - Incomp lete - Need Additi onal Imagin g Evalua tion. Electr onical ly signed by: Ronnie roa MD 2024 10:10 AM CDT RP Workst ation: [id number] PAGE 2 OF [address], [address], 04/27/2025 15:27:53 05/05/20 25 05/05/2025 US, sheila casey, [facility] [address] [place] [id number] PANKAJIN G REPORT Name: KIMBERLY COSTA Room #: : 1969 Accoun t #: [id number] Bed #: Age: 54 Years Patien t Type: Outpat ient Order Date/T yulissa: 2024 09:04: 00 AM Sex: F Access ion#: Exam Descri ption: Exam Reason : [id number] BREAST LIMITE D R928 Dictat ed By: Ronnie Chavez Physic bob: HARRIM AN, DANIELLE Attend ing Physic bob: DANIELLE PILLAI Primar y Care Physic bob: ELIZABETH JUNIOR, DANIELLE Onofre EXAMIN ATION: US BREAST LIMITE D CLINIC AL HISTOR Y: 54 years Female ,R928 COMPAR MAGAN: Bilate ral screen ing mammog lalita of 025 and right unilat eral diagno stic mammog lalita of 025 TECHNI QUE: Target ed right breast sonogr am with graysc chris and color Dopple r imagin g at the 9:00 positi on and right axilla FINDIN GS: Smooth ly margin ated 3.9 x 5.3 x 4.8 mm hypere choic solid nodule locate d 6 cm from nipple at 9:00 and corres pondin g to the 4.4 mm right breast nodule descri bed mammog raphic ally. In additi on, a hypere choic right axilla ry lymph node is presen t measur ing 1.5 x 0.6 x 1.5 cm with ill-de fined flat knitter helper ior margin s with a snows torm appear ance as can be seen with intran odal silico ne. A normal -appea ring right axilla ry lymph node is also presen t with a short axis diamet er of 3.8 mm and a cortic al thickn ess of 0.7 mm IMPRES REJI: PAGE 1 OF 2 IMAGIN G REPORT Name: KIMBERLY COSTA Room #: : 1969 Accoun t #: [id number] Bed #: Age: 54 Years Patien t Type: Outpat ient Order Date/T yulissa: 2024 09:04: 00 AM Sex: F * No sonogr aphic eviden ce of malign john. * Smooth ly margin ated 3.9 x 5.3 x 4.8 mm hypere choic solid nodule at 9:00 along with a hypere choic right axilla ry lymph node as descri bed in the body of the report worris ome for leakag e from a silico ne implan t. Recomm end contra st-enh anced MRI of the breast s. ACR Birads Catego ry: 0 - Incomp lete - Need Additi onal Imagin g Evalua tion and/or Prior Mammog nicolasa For Compar magan. The patien t was inform ed of these result s and recomm endati ons prior to leavin g the depart ment. Electr onical ly signed by: Ronnie roa MD 2024 09:26 AM CDT RP Workst ation: [id number] PAGE 2 OF [address] [facility] [address] [place] [address], [id number], 05/29/2025 10:10:27 05/05/20 25 05/05/2025 MAMMO , diagn ostic , tomos ynthe sis, unila teral [place] [address] [place] [address] [id number] [phone] MAMMOG LALITA REPORT Name: KIMBERLY COSTA Room #: : 1969 Accoun t #: [id number] Bed #: Age: 54 Years Patien t Type: Outpat ient Order Date/T yulissa: 2024 08:35: 09 AM Sex: F Access ion#: Exam Descri ption: Exam Reason : [id number] MG DIAG BREAST JANICE UN R928 Dictat ed By: Ronnie Chavez Physic bob: HARRZEFERINO AN DANIELLE Attend ing Physic bob: HARRZEFERINO AN, DANIELLE A Primar y Care Physic bob: HARRIM AN, DANIELLE A EXAMIN ATION: MG DIAG BREAST JANICE UNILAT Date: 025 8:35 AM CDT CLINIC AL HISTOR Y: 54 years Female ,R928 COMPAR MAGAN: Multip le prior mammog nicolasa with the most recent dated 025 TECHNI QUE: 2-D and 3-D ML views of the right breast withou t and with implan t displa cement techni que follow ed by focal spot compre ssion right MLO and CC views. FINDIN GS: The breast s are hetero geneou sly dense, which may obscur e small masses . The 4.4 mm round nodule flat knitter helper ior one third right breast upper outer quadra nt 6.9 cm from nipple at 9:00 persis ts with focal spot compre ssion and mainta ins smooth well-d efined border s. No davida ectura l distor tion or calcif icatio ns of the malign ant type. Target ed sonogr aphic evalua tion of the area of intere st PAGE 1 OF 2 MAMMOG LALITA REPORT Name: KIMBERLY COSTA Room #: : 1969 Accted t #: [id number] Bed #: Age: 54 Years Patien t Type: Outpat ient Order Date/T yulissa: 2024 08:35: 09 AM Sex: F demons trates a damien rascon g smooth ly margin ated 3.9 x 5.3 x 4.8 mm hypere choic solid nodule locate d 6 cm from nipple at 9:00 withou t flat knitter helper ior shadow ing or intrin sic blood flow by color Dopple r. In additi on, a hypere choic right axilla ry lymph node is presen t measur ing 1.5 x 0.6 x 1.5 cm with ill-de fined flat knitter helper ior margin s and a snows torm appear ance as can be seen with intran odal silico ne. A normal -appea ring right axilla ry lymph node is also presen t with a short axis diamet er of 3.8 mm and a cortic al thickn ess of 0.7 mm IMPRES REJI: * Smooth ly margin ated 4.4 mm right breast nodule at 9:00 damien rascon g to a smooth ly margin ated 3.9 x 5.3 x 4.8 mm hypere choic solid nodule sonogr aphica lly along with a 1.5 x 0.6 x 1.5 cm hypere choic right axilla ry lymph node with sonogr aphic charac terist ics highly sugges tive of intran odal silico ne. Findin gs are worris ome for leakag e from a silico ne implan t. Recomm end contra st-enh anced MRI of the breast s. ACR Birads Catego ry: 0 - Incomp lete - Need Additi onal Imagin g Evalua tion and/or Prior Mammog nicolasa For Compar magan. The ernesto casey was inform ed of these result s and recomm endati ons prior to ela poe the depart ment. Elie le signed by: Ronnie roa MD 2024 09:34 AM CDT RP Workst ation: [id number] PAGE 2 OF [address] [facility] [address] [place] [address], [id number], 05/08/2025 16:53:45 05/10/20 25 05/09/2025 MRI, sheila t, pandaat eral, w/wo contr ast No observ ation record ed. [place] [id number] [facility] [address] [place] [address], [id number], 05/11/2025 08:58:35 Result Notes Documentation Provider Name and Address Organization Details Recorded Time Mammo, Screening, Tomosynthesis, Bilateral : [address] [id number] MAMMOGRAM REPORT Name: ALEJANDRINAALEXSilvana Quiroz Room #: : 1970 Bed #: Age: 52 Years Patient Type: Outpatient Order Date/Time: 04/13/2023 08:30:12 AM Sex: F Accession#: Exam Description: Exam Reason: [id number] MG SCRN BREAST JANICE, B Z1231 Dictated By: Darian Carlisle Ordering Physician: LISA VELA Attending Physician: LISA VELA Primary Care Physician: RAMESH JULIAN EXAMINATION: MG GUTIERREZ BREAST HUBERT CAMACHO Date: 04/13/2023 8:30 AM CDT CLINICAL HISTORY: 52 years Female,Z1231 COMPARISON: Multiple prior mammograms with the most recent dated 04/10/2022 TECHNIQUE: 2-D and 3-D digital mammography performed bilaterally in the MLO and CC projections with CAD FINDINGS: The fibroglandular parenchymal pattern is heterogeneously dense. Bilateral subpectoral breast implants are in place and intact. No dominant mass, architectural distortion or calcifications of the malignant type. IMPRESSION: NO MAMMOGRAPHIC EVIDENCE OF MALIGNANCY. THEREFORE, CONTINUED ROUTINE ANNUAL MAMMOGRAM SCREENING IS RECOMMENDED UNLESS PAGE 1 OF 2 MAMMOGRAM REPORT Name: KIMBERLY COSTA Room #: : 1970 Bed #: Age: 52 Years Patient Type: Outpatient Order Date/Time: 04/13/2023 08:30:12 AM Sex: F CLINICALLY INDICATED SOONER. ACR Birads Category: 1 - Negative. Electronically signed by: Darian Carlisle MD 04/13/2023 2:44 PM CDT PAGE 2 OF 2 ZELALEM Frye [address] [place] [address], [phone], [facility] 05/21/2023 14:21:07 Mammo, Screening, Tomosynthesis, Bilateral : Josemanuel Britton [address] [place] [address] MAMMOGRAM REPORT Name: KIMBERLY COSTA Room #: : 1970 Bed #: Age: 53 Years Patient Type: Outpatient Order Date/Time: 04/14/2024 08:44:00 AM Sex: F Accession#: Exam Description: Exam Reason: [id number] MG GUTIERREZ BREAST JANICE, B screening Dictated By: Ronnie Carlisle Ordering Physician: LISA VELA Attending Physician: LISA VELA Primary Care Physician: DANIELLE ACOSTA EXAMINATION: MG GUTIERREZ BREAST JANICE, BILAT Date: 04/14/2024 8:44 AM CDT CLINICAL HISTORY: 53 years Female,screening COMPARISON: Multiple prior mammograms with the most recent dated 04/13/2023 TECHNIQUE: 2-D and 3-D digital mammography performed bilaterally in the MLO and CC projections without and with implant displacement technique. The study is interpreted with the assistance of CAD. FINDINGS: The fibroglandular parenchymal pattern is heterogeneously dense. Bilateral subpectoral breast implants remain in place and intact. No dominant mass, architectural distortion or calcifications of the malignant type. The breast cancer lifetime risk score is 11.6% (Jacqueline model). PAGE 1 OF 2 MAMMOGRAM REPORT Name: KIMBERLY COSTA Room #: : 1970 Bed #: Age: 53 Years Patient Type: Outpatient Order Date/Time: 04/14/2024 08:44:00 AM Sex: F IMPRESSION: NO MAMMOGRAPHIC EVIDENCE OF MALIGNANCY. THEREFORE, CONTINUED ROUTINE ANNUAL MAMMOGRAM SCREENING IS RECOMMENDED UNLESS CLINICALLY INDICATED SOONER. ACR Birads Category: 1 - Negative. Electronically signed by: Ronnie Carlisle MD 04/15/2024 08:21 AM CDT RP PAGE 2 OF 2 [place] [facility] 04/15/2024 14:20:31 Mammo, Screening, Tomosynthesis, Bilateral : [address] [address] MAMMOGRAM REPORT Name: KIMBERLY COSTA Room #: : 1970 Bed #: Age: 54 Years Patient Type: Outpatient Order Date/Time: 04/21/2025 09:41:00 AM Sex: F Accession#: Exam Description: Exam Reason: [id number] MG SCRN BREAST JANICE, B z1231 Dictated By: Ronnie Carlisle Ordering Physician: DANIELLE ACOSTA Attending Physician: DANIELLE ACOSTA Primary Care Physician: DANIELLE ACOSTA EXAMINATION: MG KASSIN BREAST HUBERT CAMACHO Date: 04/21/2025 9:41 AM CDT CLINICAL HISTORY: 54 years Female,z1231 COMPARISON: Multiple prior mammograms with the most recent dated 04/14/2024 TECHNIQUE: 2-D and 3-D digital mammography performed bilaterally in the MLO and CC projections without and with implant displacement technique. The study is interpreted with the assistance of CAD. FINDINGS: The breasts are heterogeneously dense, which may obscure small masses. Bilateral subpectoral breast implants remain in place and intact. Partially obscured 4.4 mm round nodule posterior one third right breast upper outer quadrant 6.9 cm from the nipple at 9 o'clock. No dominant mass, architectural distortion or calcifications of the malignant type. PAGE 1 OF 2 MAMMOGRAM REPORT Name: KIMBERLY COSTA Room #: : 1970 Bed #: Age: 54 Years Patient Type: Outpatient Order Date/Time: 04/21/2025 09:41:00 AM Sex: F The breast cancer lifetime risk score is 11.4% (Jacqueline model). IMPRESSION: Partially obscured 4.4 mm right breast nodule. Recommend right MLO and CC focal spot compression views followed by a limited right breast sonogram. The left breast demonstrates no mammographic evidence of malignancy. ACR Birads Category: 0 - Incomplete - Need Additional Imaging Evaluation. Electronically signed by: Ronnie Carlisle MD 04/21/2025 10:10 AM CDT RP PAGE 2 OF 2 [facility] 04/27/2025 15:27:53 Mammo, Diagnostic, Tomosynthesis, Unilateral : [place] [address] [address] MAMMOGRAM REPORT Name: ALEX COSTASilvana Quiroz Room #: : 1970 Bed #: Age: 54 Years Patient Type: Outpatient Order Date/Time: 05/05/2025 08:35:09 AM Sex: F Accession#: Exam Description: Exam Reason: [id number] MG DIAG BREAST JANICE UN R928 Dictated By: Ronnie Carlisle Ordering Physician: DANIELLE ACOSTA Attending Physician: DANIELLE ACOSTA Primary Care Physician: DANIELLE ACOSTA EXAMINATION: MG DIAG BREAST JANICE UNILAT Date: 05/05/2025 8:35 AM CDT CLINICAL HISTORY: 54 years Female,R928 COMPARISON: Multiple prior mammograms with the most recent dated 04/21/2025 TECHNIQUE: 2-D and 3-D ML views of the right breast without and with implant displacement technique followed by focal spot compression right MLO and CC views. FINDINGS: The breasts are heterogeneously dense, which may obscure small masses. The 4.4 mm round nodule posterior one third right breast upper outer quadrant 6.9 cm from nipple at 9:00 persists with focal spot compression and maintains smooth well-defined borders. No architectural distortion or calcifications of the malignant type. Targeted sonographic evaluation of the area of interest PAGE 1 OF 2 MAMMOGRAM REPORT Name: KIMBERLY COSTA Room #: : 1970 Bed #: Age: 54 Years Patient Type: Outpatient Order Date/Time: 05/05/2025 08:35:09 AM Sex: F demonstrates a corresponding smoothly marginated 3.9 x 5.3 x 4.8 mm hyperechoic solid nodule located 6 cm from nipple at 9:00 without posterior shadowing or intrinsic blood flow by color Doppler. In addition, a hyperechoic right axillary lymph node is present measuring 1.5 x 0.6 x 1.5 cm with ill-defined posterior margins and a snowstorm appearance as can be seen with intranodal silicone. A normal-appearing right axillary lymph node is also present with a short axis diameter of 3.8 mm and a cortical thickness of 0.7 mm IMPRESSION: * Smoothly marginated 4.4 mm right breast nodule at 9:00 corresponding to a smoothly marginated 3.9 x 5.3 x 4.8 mm hyperechoic solid nodule sonographically along with a 1.5 x 0.6 x 1.5 cm hyperechoic right axillary lymph node with sonographic characteristics highly suggestive of intranodal silicone. Findings are worrisome for leakage from a silicone implant. Recommend contrast-enhanced MRI of the breasts. ACR Birads Category: 0 - Incomplete - Need Additional Imaging Evaluation and/or Prior Mammograms For Comparison. The patient was informed of these results and recommendations prior to leaving the department. Electronically signed by: Ronnie Carlisle MD 05/05/2025 09:34 AM CDT RP PAGE 2 OF 2 Stella Pineda RN [facility], [facility] 05/08/2025 16:53:45 Problems Name Problem SNOMED Code Status Onset Date Resolution Date Notes Provider Name and Address Organization Details Recorded Time Mammography finding 475311479 Active Audra Rivera [facility], [facility] 5 16:01:30 Atypical squamous cells of undetermined significance on cervical Papanicolaou smear 567511594 Active Audra Rivera [facility] 5 16:01:30 Essential hypertension 60578471 Active 2017 Audra Burtonsunny [facility] 5 16:01:30 Generalized anxiety disorder 32908892 Active 2021 Audra Burtonsunny [facility] 5 16:01:30 Mixed hyperlipidemia 275277039 [facility] 16:[facility]:30 Thoracic back pain 787608698 Active 2023 Audra Manriquesunny [facility] 5 16:01:30 Urge incontinence of urine 23390089 Active 2023 Audra Gosunny [facility] 5 16:01:30 Anxiety state 637909866 Active 2023 Audrayulisa Rivera [facility] 5 16:01:30 Mammography abnormal 159097098 Active 2024 Audra Rivera [facility] 5 16:01:30 Leakage of breast implant 314716167 Active 2024 Audra Gosunny [facility] 5 16:01:30 Rupture of breast implant 034437055 Active 2024 ZELALEM Frye [address] [place] [address], [phone] , [facility] 5 16:56:41 Problem Notes None recorded. Procedures Surgical History Date Name Laterality Status Provider Name and Address Organization Details Recorded Time 5 Date of Last Mammogram completed Yandy Conte [facility] 04/24/2025 09:23:00 2 Feces-based colorectal cancer DNA screening completed Not Available On license of [facility] 11/16/2022 22:10:17 1 Orthopedic Surgery completed Not Available On license of [facility] 11/16/2022 22:10:17 insertion of bilateral breast prostheses completed Not Available On license of [facility] 11/16/2022 22:10:17 Imaging Results None recorded. Procedure Notes None recorded. Medical Equipment None Reported. Allergies No known drug allergies Medications Name Sig Start Date Stop Date Status Note LastModified by Organization Details LastModified Time celecoxib 200 mg capsule TAKE 1 CAPSULE BY MOUTH EVERY DAY FOR 14 DAYS 04/12 completed Not Available Not Available Not Available triamcinolo ne acetonide 0.5 % topical cream APPLY CREAM TOPICALLY TO AFFECTED AREA TWICE DAILY 05/21 completed Not Available Not Available Not Available metoprolol succinate ER 50 mg tablet,exte nded release 24 hr TAKE 1 TABLET BY MOUTH DAILY DIRECTED 2024 active Not Available Not Available Not Avai lable valacyclovi r 1 gram tablet TAKE ONE TABLET BY MOUTH ONCE DAILY 05/22 completed Not Available Not Available Not Available hydrocodone 5 mg-acetamin ophen 325 mg tablet TAKE 1 TO 2 TABLETS BY MOUTH EVERY SIX HOURS NEEDED FOR PAIN 04/12 completed Not Available Not Available Not Available prednisone 20 mg tablet Take 1 tablet twice a day by oral route with meals for 7 days. 04/09 completed Not Available Not Available Not Available lorazepam 0.5 mg tablet active Not Available Not Available Not Available paroxetine 20 mg tablet TAKE 1 TABLET BY MOUTH DAILY DIRECTED 05/22 completed Not Available Not Available Not Available simvastatin 20 mg tablet TAKE 1 TABLET BY MOUTH IN THE EVENING 2024 active Not Available Not Available Not Avai lable orphenadrin e citrate ER 100 mg tablet,exte nded release TAKE ONE TABLET BY MOUTH TWICE DAILY NEEDED FOR 7 DAYS 01/26 completed Not Available Not Available Not Available buspirone 7.5 mg tablet Take 1 tablet twice a day by oral route for 30 days. active Not Available Not Available No t Available hydroxyzine HCl 25 mg tablet TAKE 1 TABLET BY MOUTH EVERY SIX HOURS NEEDED FOR NAUSEA, VOMITING, ITCHING, AND PAIN ADJUNCT 04/12 completed Not Available Not Available Not Available metoprolol succinate ER 25 mg tablet,exte nded release 24 hr active Not Available Not Available Not Available methylpredn isolone 4 mg tablets in a dose pack TAKE BY MOUTH DIRECTED ON INSIDE OF PACKAGE 05/21 completed Not Available Not Available Not Available naproxen 500 mg tablet TAKE ONE TABLET BY MOUTH TWICE DAILY FOR 7 DAYS WITH FOOD 01/26 completed Not Available Not Available Not Available buspirone 15 mg tablet TAKE 1 TABLET BY MOUTH TWICE DAILY active Not Available Not Available No t Available escitalopra m 10 mg tablet TAKE 1 TABLET BY MOUTH DAILY 05/21 completed Not Available Not Available Not Available Aneta 0.35 mg tablet 05/21 completed Not Available Not Available Not Available levonorgest rel 0.15 mg-ethinyl estradiol 30 mcg tablets,3 mos pack(91) TAKE 1 TABLET BY MOUTH DAILY DIRECTED GENERIC EQUIVALEN T FOR JOLESSA 05/02 completed Not Available Not Available Not Available Bystolic 10 mg tablet 1 tab by mouth daily 03/24 completed Not Available Not Available Not Available Bystolic 5 mg tablet active Not Available Not Available No t Available Fluvirin 5123-2555 45 mcg (15 mcg x 3)/0.5 mL intramuscul ar suspension 05/20 completed Not Available Not Available Not Available Fluzone Quad 6717-4918 60 mcg (15 mcg x 4)/0.5 mL IM suspension 05/20 completed Not Available Not Available Not Available Fluzone Quad (PF) 60 mcg(15 mcgx4)/0.5 mL intramuscul ar syringe 05/20 completed Not Available Not Available Not Available Flucelvax Quad 60 mcg (15 mcg x 4)/0.5 mL IM suspension 05/20 completed Not Available Not Available Not Available Afluria Quad 60 mcg (15 mcg x 4)/0.5 mL intramuscul ar susp. 05/20 completed Not Available Not Available Not Available Vitals Date Recorded Oxygen saturation Oxygen saturation in Arterial blood by Pulse oximetry Heart rate Body temperature Body weight Systolic And Diastolic Provider Name and Address Organization Details Last Updated DateTime 2 100 % 100 % 78 /min 98.1 [degF] 73148.0 8 g 124/78 mm[Hg] Not Available [facility] 3 22:07:35 Date Recorded Body height Body mass index (BMI) Body weight Body temperature Respiratory rate Oxygen saturation Oxygen saturation in Arterial blood by Pulse oximetry Systolic And Diastolic Provider Name and Address Organization Details Last Updated DateTime 3 172.72 cm 24 kg/m2 25724.5 9 g 97.8 [degF] 16 /min 98 % 98 % 110/68 mm[Hg] Miguelina Scruggs [facility] 3 14:01:30 Date Recorded Body height Body mass index (BMI) Body weight Body temperature Respiratory rate Oxygen saturation Oxygen saturation in Arterial blood by Pulse oximetry Heart rate Systolic And Diastolic Provider Name and Address Organization Details Last Updated DateTime 5 172.72 cm 19.8 kg/m2 28992.0 1 g 98.2 [degF] 16 /min 97 % 97 % 91 /min 116/68 mm[Hg] [facility] 5 16:26:21 Date Recorded Body height Body mass index (BMI) Body weight Body temperature Heart rate Oxygen saturation Oxygen saturation in Arterial blood by Pulse oximetry Respiratory rate Systolic And Diastolic Provider Name and Address Organization Details Last Updated DateTime 4 172.72 cm 22.7 kg/m2 64688.2 6 g 98 [degF] 72 /min 98 % 98 % 16 /min 120/68 mm[Hg] [facility] 4 09:31:21 Date Recorded Body mass index (BMI) Body height Body weight Provider Name and Address Organization Details Last Updated DateTime 06/09/2022 22.4 kg/m2 172.72 cm 85046.08 g Not Available [facility] 11/16/2022 22:07:37 Social History Question Answer Notes LastModified by Organizat ion Details LastModified Time Tobacco Smoking Status Never Smoker Not Available [facility] 11/16/2022 22:05:31 Do You Have An Advance Directive? No [id number] Information not available 11/16/2022 What Is Your Level Of Caffeine Consumption? Occasional Information not available 05/18/2024 In The 14 Days Before Symptom Onset, Have You Had Close Contact With A Laboratory-confir med COVID-19 While That Case Was Ill? No [id number] Information not available 11/16/2022 In The 14 Days Before Symptom Onset, Have You Had Close Contact With A Person Who Is Under Investigation For COVID-19 While That Person Was Ill? No [id number] [id number] Information not available 11/16/2022 What Type Of Diet Are You Following? REGULAR [id number].[id number] Information not available 11/16/2022 Have There Been Any Changes To Your Family Or Social Situation? No Information no t available 05/18/2024 What Is The Fluoride Status Of Your Home? Fluoridated Information not available 05/18/2024 Do You Use Insect Repellent Routinely? Yes Information not available 05/18/2024 Where Do You Live? [facility] Information not available 05/18/2024 Are You In An Abusive/frighteni ng Relationship? No [id number] Information not available 11/16/2022 Do You Feel Safe At Home Yes Information not available 05/18/2024 Do You Feel Hopeless Or Helpless No Information not available 05/18/2024 Have You Had Thoughts Of Suicide? No [id number].[id number] Information not available 11/16/2022 Are You Having Any Suicidal Thoughts Now? No MIGRATION.[id number] 2409 Information not available 11/16/2022 Have You Previously Attempted Suicide? No [id number].[id number] 2022 Information not available 11/16/2022 Do You Have A Plan To Hurt Yourself Or Others? No Information not available 05/18/2024 Has A Family Member Or Someone Close To You Committed Suicide Or Have You Been A Witness To Suicide? No MIGRATION.[id number] 5531 Information not available 11/16/2022 Have You Fallen In The Last 3 Months? No MIGRATION.[id number] 6585 Information not available 11/16/2022 Do You Have A Plan To Hurt Yourself Or Others? No MIGRATION.[id number] [id number] Information not available 11/16/2022 What Was The Date Of Your Most Recent Tobacco Screening? 05/22/2025 Information not available 05/22/2025 Have You Ever Been Counseled For Unhealthy Alcohol Use? No Information not available 05/18/2024 Do You Have Any Pets? Yes Information not available 05/18/2024 What Is Your Relationship Status? Information not available 05/18/2024 Do You Have Smoke And Carbon Monoxide Detectors In Your Home? Yes Information not available 05/18/2024 Are You Passively Exposed To Smoke? No Information no t available 05/18/2024 Are There Any Smokers In Your House? No Information not available 05/18/2024 How Much Tobacco Do You Smoke? No MIGRATION.[id number] Information not available 11/16/2022 Do You Participate In Social Media? Yes Information not available 05/18/2024 Do You Use Sunscreen Routinely? Yes Information not available 05/18/2024 Has Tobacco Cessation Counseling Been Provided? No Information not available 05/18/2024 Have You Recently Traveled Abroad? No Information not available 05/18/2024 Do You Have Difficulty Walking Or Climbing Stairs? No MIGRATION.[id number] [id number] Information not available 11/16/2022 Are You Currently In School? No MIGRATION.[id number] 7535 Information not available 11/16/2022 Do You Have Any Dietary Restrictions? No Information not available 05/18/2024 Sex: Female Functional Status Question Answer Note LastModified by Organizat ion Details LastModified Time Do you use any illicit or recreational drugs? No [email or web address] Information not available 05/21/2023 Do you or have you ever used any other forms of tobacco or nicotine? No Information not available 05/18/2024 What is your level of alcohol consumption? Occasional MIGRATION.177415 2362 Information not available 11/16/2022 Do you or have you ever used smokeless tobacco? Never used smokeless tobacco MIGRATION.[id number] 9355 Information not available 11/16/2022 Are you currently employed? 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 Never used electronic cigarettes MIGRATION.[id number] 4423 Information not available 11/16/2022 What is your exercise level? Moderate MIGRATION.[id number] 6756 Information not available 11/16/2022 Mental Status Question Answer Note LastModified by Organizat ion Details LastModified Time Do you feel stressed (tense, restless, nervous, or anxious, or unable to sleep at night)? [id number] Information not available 05/18/2024 Do you have difficulty concentrating, remembering or making decisions? No [id number] Information not available 11/16/2022 Family History Relationship Description Onset Age of this Age Resolved Age Notes LastModified by Organization Details LastModified Time Father No current problems or disability [id number] Not available 11/16/2022 22:04:41 Mother No current problems or disability [id number] Not available 11/16/2022 22:04:41 Medical History Condition Response HYPERTENSION Y Gynecological History Statement/Question Response Abnormal Pap Y Date of Last Mammogram 04/21/2025 Date of Last Mammogram 04/21/2025 Date of Last Colonoscopy Date of LMP 02/09/2024 Date of Last Pap 05/09/2022 Current Control Method None Obstetrics History GPAL:G 3 P 1 0 2 1 Type Value Full Term 1 Spontaneous 2 Living 1 Total 3 Immunizations Vaccine Type Date Status Note Provider Nam e and Address Organization Details Recorded Time Influenza, split virus, quadrivalent, preservative 3 completed Not Available [facility] 11/16/2022 14:59:28 Influenza, split virus, quadrivalent, preservative 5 completed Audra Rivera [facility] 05/23/2024 09:26:54 Influenza, split virus, quadrivalent, preservative 4 completed Audra Goetting null, [facility] 05/23/2024 09:26:54 Influenza, split virus, quadrivalent, preservative 8 completed Not Available On license of [facility] 11/16/2022 22:10:10 Influenza, split virus, quadrivalent, preservative 7 completed Not Available On license of [facility] 11/16/2022 22:10:10 COVID-19, mRNA, LNP-S, PF, 30 mcg/0.3 mL dose 1 completed Audra Goetting null, [facility] 05/23/2024 09:26:54 COVID-19, mRNA, LNP-S, PF, 30 mcg/0.3 mL dose 1 completed Audra Goetting null, [facility] 05/23/2024 09:26:54 COVID-19, mRNA, LNP-S, PF, 50 mcg/0.5 mL dose 1 completed Audra Goetting null, [facility] 05/23/2024 09:26:54 Tdap 4 completed Yandy Conte null, [facility] 06/02/2024 14:55:12 zoster recombinant 4 completed Beth James null, [facility] 06/02/2024 15:33:39 zoster recombinant 4 completed Audra Goetting null, [facility] 09/26/2024 08:37:53 Past Encounters Encounter ID Performer Location Encounter Start Date Encounter Closed Date Diagnosis/Indication Diagnosis SNOMED-CT Code Diagnosis ICD10 Code Diagnosis Note [id number] Harriett Villafana MD [address] [address] 01/18/2018 00:00:00 01/18/2018 18:16:59 [id number] ZOIE Doran [address] [address] 03/24/2019 00:00:00 04/05/2019 01:24:55 [id number] Harriett Villafana MD [address] [address] 10/31/2019 00:00:00 10/31/2019 11:23:04 [id number] Keturah Tavera NP [address] [address] 11/25/2019 00:00:00 11/25/2019 17:41:05 [id number] Keturah Tavera NP [address] [address] 04/12/2021 00:00:00 04/12/2021 11:02:06 [id number] Harriett Villafana MD [address] [address] 05/02/2022 00:00:00 05/02/2022 15:30:54 [id number] Harriett Villafana MD [address] [address] 06/09/2022 00:00:00 06/09/2022 09:57:49 [id number] ZELALEM Frye [address] [address] 05/21/2023 13:49:22 05/21/2023 14:36:37 Adult health examination [id number] Z00.00 - overall doing well- 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 and mammogram- cologaurd 05/2022 UTD- pt check ins on Tdap booster and shingles vaccines Generalize d anxiety disorder [id number] F41.1 - stop lexapro- start paxil 20mg daily- cont buspirone 15mg BID- med education given- f/u 4 weeks; pt prefers to do phone call due to work schedule Essential hypertension 45180850 I10 - metoprolol ER 50mg daily- BP stable Mixed hyperlipidemia 267 145080 E78.2 - simvastati n 20mg daily- TC 192- LDL 100- Trigs 175 [id number] ZELALEM Frye [address] [address] 05/23/2024 09:15:42 05/23/2024 10:39:14 Adult health examination 624408923 Z00.00 - overall doing well- 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 Vela to discuss- if Dr. 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- reviewed routine labs 04/2025- mammogram 04/2025- cologaurd 05/2022 UTD, due to recheck- pt check ins on Tdap booster and shingles vaccines Depression screening 171 Z13.31 - negative Screening for malignant neoplasm of colon 552051706 Z12.11 - last cologard negative 2021- repeat 2024- ordered Rupture of breast implant 272714314 T85.43XA - noted on MRI- scheduled for replacemen t of both breast implants 05/30/2025 Health Concerns Section Related Observation LastModified by Organization Angela holley LastModified Time None Recorded Concern Status LastModified by Organization Details LastModified Time None Recorded Advance Directives Directive N: Payers Insurance Date Sequence Insurance Name Policy Number Policy Bourne Covered Member ID Bourne Member ID Guarantor Name 05/22/2025 1 [employer] [id number] Kimberly Costa [id number] Kimberly Costa 05/22/2025 1 [facility] ([place]) [id number] Kimberly Millerviviane [id number] Kimberly Costa 05/22/2025 1 [facility] (PPO) [id number] Kimberly Millerr [id number] Kimberly Costa Notes Date Note Type Note Provider Name and Address Organization Details Recorded Time 05/21/2023 text/html Pt is here for a wellness exam. Denies complaints. ZELALEM Frye [address] [place] [address], [phone], [facility] 05/22/2023 15:44:49 05/23/2024 text/html Pt here for a an annual wellness exam and mid back pain and questions about her anxietymedications . Overall she has been doing well.She has been taking her meds daily as directed. 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 She said she started with low back pain. She said that she was on vacation and she was playing around in the ocean. She said she was playing on a [employer] board. She said that it has been going on since then. She does not remember a specific injury but can remember it being sore the next morning.She said the pain is in the left side of the mid to low back. She has been taking some OTC tylenol/motrin with minimal relief. No numbness or tingling. She said sitting is the worse for her. She also has been having progressive bladder leakage with coughing or sneezing. She said that she has had this for years, but it is getting to a point that she is trying to work out and she gets leakage and it is becoming more of a bothersome for her. She is wanting a referral to discuss a possible bladder sling or permanent solution. She also feels like her anxiety is better and she would like to wean off of her medication. She said she wants to discuss how to do that. ZELALEM Frye [address] [place] [address], [phone], [facility] 05/25/2024 11:26:01 05/22/2025 text/html Pt is here for adult wellness visit. Pt denies any problems.She had labs done and would like to review the results Pt is having breast implant surgery on 05/30/2025 to have implants replaced by Dr. Dr. Bipin Hogan. ZELALEM Frye [address] [place] [address], [phone], [facility] 05/22/2025 16:59:20 OBGyn Episode No OBEpisode recorded.
--- OUTSIDE RECORDS SUMMARY | 2025-05-30 00:32 | XMS_ITS | Clinical Summary ---
Author Organization [facility] Address [address] 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 Gender Identity Not on file Sexual Orientation Not on file Plan of Treatment Health Maintenance Due Date Last Done Comments DTAP/TDAP/TD VACCINES (1 - Tdap) 1989 HEPATITIS B VACCINES (1 of 3 - 19+ 3-dose series) 06/1989 HPV/Cotest (21-29) 1991 CERVICAL CANCER SCREENING 2000 HPV/Cotest (30-65) 2000 PAP SMEAR 2000 BREAST CANCER SCREENING 2010 COLORECTAL SCREENING 2015 Colorectal Cancer Screening 2015 FIT-DNA Q 3 years 2015 FIT/FOBT Q 1 year 2015 Flex Sig/CT Colonography Q 5 years 2015 ZOSTER VACCINE (1 of 2) 2020 INFLUENZA VACCINE (#1) 2025 Care Teams Environmental Education Specialist Relationship Specialty Start Date End Date Renny Hutchins MD NO ADDRESS ON FILE PCP - General 06/09/00
--- OUTSIDE RECORDS SUMMARY | 2025-05-30 00:32 | XMS_ITS | Encounter Summary ---
Author Organization [facility] [employer] Address [address] [place] [address] Care Team Providers Care Memorial Adviser Name Role Phone Renny Hutchins MD Primary Care Provider Unavailable Encounter Details Date Type Department Care Team (Latest Contact Info) Description 12/16/1999 Outpatient Historical [facility] Sena Salomon MD NO ADDRESS ON FILE Female infertility of unspecified origin (Primary Dx) Social History Tobacco Use Types Packs/Day Years Used Date Smoking Tobacco: Never Assessed Comments Unknown Sex and Gender Information Value Date Recorded Sex Assigned at Not on file Legal Sex Female 3:24 AM VP STRATEGY Gender Identity Not on file Sexual Orientation Not on file documented as of this encounter Plan of Treatment Not on file documented as of this encounter Visit Diagnoses Diagnosis Female infertility of unspecified origin- Primary documented in this encounter Care Teams Memorial Adviser Relationship Specialty Start Date End Date Renny Hutchins MD NO ADDRESS ON FILE PCP - General 06/09/00 documented as of this encounter
--- OUTSIDE RECORDS SUMMARY | 2025-05-30 00:32 | XMS_ITS | Clinical Summary ---
Author Organization [facility] [address] Address [address] [place] [address] Care Team Providers Care Milk Inspector Name Role Phone Liang Keturah AMEENA Primary Care Provider [phone] Allergies No known active allergies Medications simvastatin [...] a steroid shot today. I recommended taking [id number] allergy medications as needed. Follow-up as needed. Nasal obstruction 07/01/2022 Assessment & Plan (07/01/2022 7:45 PM CDT): She has a pretty clear nasal airway. No recommendations other than potentially trying a steroid nasal spray. 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 Gender Identity Not on file Sexual Orientation Not on file Obstetrics History Last Filed Vital Signs Vital Sign Reading [...] 07/05/2024 4:03 PM CDT Plan of Treatment Health Maintenance Due Date Last Done Comments Cervical Cancer Screening 1970 Colon Cancer Screening-Colonoscopy 1970 Depression Screening 1970 Hepatitis C Screening 1970 Hepatitis B Screening 1988 Regular Well Visit/Exam 18-64 1988 Covid-19 Vaccine (3 - 2023- season) 2024 01/19/2021, 12/26/2020 Zoster Vaccine (2 of 2) 07/28/2024 06/02/2024 Breast Cancer Screening-Mammogram 04/15/2025 04/15/2024, 04/13/2023, 04/10/2022 Influenza Vaccine (#1) 2025 8, 09/24/2017, 07/31/2016, Additional history exists DTaP/Tdap/Td Vaccine (2 - Td or Tdap) 06/02/2034 06/02/2024 Pneumococcal vaccine <65 Aged Out No longer eligible based on patient's age to complete this topic Insurance [facility] Address: [facility] [address] [place] [address] Care Teams Milk Inspector Relationship Specialty Start Date End Date Keturah Tavera NP [address] [phone] PCP - General Nurse Practitioner 07/11/20
--- OUTSIDE RECORDS SUMMARY | 2025-05-30 00:32 | XMS_ITS | Encounter Summary ---
Author Organization [facility] Address 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
--- OUTSIDE RECORDS SUMMARY | 2025-05-30 00:32 | XMS_ITS | Encounter Summary ---
Author Organization [facility] Address 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) Social History Tobacco Use Types Packs/Day Years Used Date Smoking Tobacco: Never Assessed Comments Unknown Sex and Gender Information Value Date Recorded Sex Assigned at Not on file Legal Sex Female 3:24 AM PROJECT 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
--- OUTSIDE RECORDS SUMMARY | 2025-05-30 00:32 | XMS_ITS | Encounter Summary ---
Author Organization [facility] Address [address] [place] [address] Care Team Providers Care Mathematical Technician Name Role Phone Renny Hutchins MD Primary Care Provider Unavailable Encounter Details Date Type Department Care Team (Latest Contact Info) Description 03/21/2000 Outpatient Historical [facility] Sena Salomon MD NO ADDRESS ON FILE Female infertility of unspecified origin (Primary Dx) Social History Tobacco Use Types Packs/Day Years Used Date Smoking Tobacco: Never Assessed Comments Unknown Sex and Gender Information Value Date Recorded Sex Assigned at Not on file Legal Sex Female 3:24 AM APPLICATION SUPPORT DEVELOPER Gender Identity Not on file Sexual Orientation Not on file documented as of this encounter Plan of Treatment Not on file documented as of this encounter Visit Diagnoses Diagnosis Female infertility of unspecified origin- Primary documented in this encounter Care Teams Mathematical Technician Relationship Specialty Start Date End Date Renny Hutchins MD NO ADDRESS ON FILE PCP - General 06/09/00 documented as of this encounter
--- OUTSIDE RECORDS SUMMARY | 2025-05-30 00:32 | XMS_ITS | Encounter Summary ---
Author Organization [email or web address] Address 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) Social History Tobacco Use Types Packs/Day Years Used Date Smoking Tobacco: Never Assessed Comments Unknown Sex and Gender Information Value Date Recorded Sex Assigned at Not on file 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
--- OUTSIDE RECORDS SUMMARY | 2025-05-30 00:32 | XMS_ITS | Encounter Summary ---
Author Organization [employer] Address 

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
--- OUTSIDE RECORDS SUMMARY | 2025-05-30 00:32 | XMS_ITS | Clinical Summary ---
Author Organization [facility] Address [address] [place] [address] Care Team Providers Care Limousine And Hearse Upholsterer Name Role Phone Bipin Stark MD Primary Care Provider [phone] Source Comments [facility],non-owned Affiliates and Associated Physician Practices is amultiple site organization consisting of ambulatory clinics and hospital sitesin [place], [place], [place] and [place]. This disclosure is being madepursuant to the Care Everywhere program and may not contain all information available regarding this patient. Last updated 18.[facility] Social History Tobacco Use Types Packs/Day Years Used Date Smoking Tobacco: Never Assessed Comments Unknown Sex and Gender Information Value Date Recorded Sex Assigned at Not on file Legal Sex Female 8:12 AM CDT Gender Identity Not on file Sexual Orientation Not on file Plan of Treatment Health Maintenance Due Date Last Done Comments COLOGUARD (AGES 45-75) - COL ON CA SCREENING 1970 COLON MONITORING 1970 COLONOSCOPY - COLON CA SCREENING 1970 CT COLONOGRAPHY - COLON CA SCREENING 1970 Colorectal Cancer Screening 1970 FIT - COLON CA SCREENING 1970 FLEX SIG - COLON CA SCREENING 1970 LIPID TESTING 1970 MAMMOGRAM 1970 HIV SCREENING 1985 HEPATITIS C SCREENING 07/12/1988 DTAP/TDAP/TD VACCINES (1 - Tdap) 1989 HEPATITIS B VACCINE (1 of 3 - 19+ 3-dose series) 1989 PAP SMEAR 1991 PNEUMOCOCCAL VACCINE 50+ (1 of 1 - PCV) 2020 ZOSTER VACCINE (1 of 2) 2020 COVID-19 VACCINE ( - 2023-2 5 season) 2024 DEPRESSION SCREENING 11/09/2024 INFLUENZA VACCINE (#1) 2025 5, 07/10/2014, 09/09/2013 HIB VACCINE Aged Out No longer eligi ble based on patient's age to complete this topic HPV VACCINE Aged Out No longer eligi ble based on patient's age to complete this topic MENINGOCOCCAL (Group B) VACCINE SHARED DECISION-MAKING Aged Out No longer eligible based on patient's age to complete this topic MENINGOCOCCAL GROUPS A/C/Y/W VACCINE Aged Out No longer eligible b ased on patient's age to complete this topic Insurance Care Teams Limousine [employer] Hearse Upholsterer Relationship Specialty Start Date End Date Bipin Stark MD [address] [place] [address] PCP - General Orthopedic Surgery 05/13/22
--- OUTSIDE RECORDS SUMMARY | 2025-05-30 00:32 | XMS_ITS | Encounter Summary ---
Author Organization [facility] Address [address] [place] [id number] Care Team Providers Care Ent Physician Name Role Phone Renny Hutchins MD Primary Care Provider Unavailable Encounter Details Date Type Department Care Team (Late st Contact Info) Description 10/24/[address] [facility] [id number] [facility] [place] [address] Alonso Stover MD [address] 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
--- OUTSIDE RECORDS SUMMARY | 2025-05-30 00:33 | XMS_ITS | Encounter Summary ---
Author Organization [facility] Address 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
--- NOTE | 2025-05-30 11:52 | WPDHPUPDATE1 ---
History and Physical Update Update Date/Time: 05/30/25 11:52 History and Physical has been reviewed, including an updated exam of the patient. There are NO changes in the patient's condition. Risks, benefits, and alternatives have been discussed and questions answered. Patient agrees to proceed with procedure.
--- NOTE | 2025-05-30 12:08 | W.PM.PROC2 ---
Procedure Note - Detailed Date of Procedure 05/30/25 Pre-op Diagnosis bilateral breast implant rupture Post-op Diagnosis Same Procedure Performed Bilateral breast implant exchange Surgeon Bipni Sargent MD Anesthesia General Findings Previous implants: Siltex 325cc texture Right - Implant ruptured. Capsule with what appears to be extracapsular extravasation. I removed the majority of the right anterior medial capsule that appeared to have silicone infiltration (all worrisome capsule appeared to be removed). The back wall and remainder were densely adherent to the chest wall / muscle. Left - Implant intact. Capsule with no worrisome features. New implants: Bilateral [place] MemoryGel Smooth Round high profile 325 Right: REF# [id number] SN [id number] Left: REF# [id number] Description of Procedure Preoperatively the risks, benefits, alternatives were discussed in extensive detail. I wanted to be very realistic about the risks involved as well as expectations. I was clear about how we could actually make her worse. Answered all questions to satisfaction. Voiced a clear understanding. Consent obtained. She was taken the operating room placed supine on the operating room table. Anesthesia provided by anesthesiology and prepped and draped in a standard sterile fashion. Surgical time-out was taken. 1% lidocaine and 0.25% Marcaine with epinephrine was used to provide a field block. Tegaderm nipple aguilera were placed. Ten blade used to excise the previous IMF scars. Dissection was continued down until the capsules were identified and treated as above findings. Implants removed. I then copiously irrigated with 3 L of saline solution on TUR tubing. Verified strict hemostasis. I then irrigated with Betadine containing solution. Using a no-touch technique and a [place] funnel the implant was introduced into the pocket. This was closed with 2-0 PDS followed by 3-0 Monocryl and a running subcuticular 4-0 Monocryl followed by tissue glue. Dressings were placed. She was woken taken to the PACU without difficulty. All instrument sponge counts were correct at the end of the case. Estimated Blood Loss 30 Drains No Packing No Pathology Yes (Right breast capsule) Complications No immediate complications Condition Stable Disposition PACU
[2025-05-30] MEDS: LACTATED RINGERS 1,000 ML 30 ML IV CONT ×2 (12:18→14:03)
[2025-05-30] MEDS: TRANEXAMIC ACID 1,000MG/ISO100 1,000 MG/100 ML BAG 200 MG IVPB (12:18)
--- NOTE | 2025-05-30 12:21 | WPDANESEPPF ---
Anes - Initial Pre Proc Eval Procedure: Operation Date: 05/30/25 13:30 Proposed Procedures p Bilateral Breast Implant Exchange, Possible Capsulectomy - Bipin Sargent MD Date/Time: 05/30/25 12:21 Surgeon: Bipin Sargent MD Pre Op Diagnosis: bilateral breast implant rupture Patient Data Age: 54 Gender: F Height: 1.7 m Weight: 58.4 kg Last Vital Signs Temp 98.2 F 05/30/25 11:45 Pulse 72 05/30/25 11:45 BP 141/82 H 05/30/25 11:45 Pulse Ox 100 05/30/25 11:45 O2 Del Method Room Air 05/30/25 11:45 Allergies Allergy/AdvReac Type Severity Reaction Status Date / Time No Known Allergies Allergy Verified 05/30/25 12:14 Home Medications ?Medication ?Instructions ?Recorded ?Confirmed ?Type metoprolol succinate 50 mg 50 mg PO DAILY 05/25/25 05/25/25 History tablet,extended release 24 hr multivitamin (Daily Multi-Vitamin 1 tablet PO DAILY 05/25/25 05/25/25 History tablet) oxybutynin chloride 10 mg 10 mg PO DAILY 05/25/25 05/25/25 History tablet,extended release 24 hr simvastatin 20 mg tablet 20 mg PO HS 05/25/25 05/25/25 History Patient hx anesthesia problems: none Family hx anesthesia problems: none Results Review: All pre-operative results and documents have been reviewed as part of the pre-operative evaluation. [facility] Social History Social History Smoking status: Never smoker Alcohol intake: current Living arrangements: with family Spiritual care concerns: No Anes - Eval Final PreProcedure Day of Procedure 05/30/25 12:21 Patient weight: normal Lungs: normal air movement Airway: Mallampati scale class II Neurological: alert and oriented Last oral intake: >/= 8 hours ASA classification: II Emergent: no Anesthetic plan: proceed Anesthesia type and monitoring: general and standard monitoring Results Review: All pre-operative results and documents have been reviewed as part of the pre-operative evaluation. HTN, hyperlipidemia. Informed Consent: The patient's anesthetic plan and its attendant risks and benefits were discussed with the patient/family/POA. Questions were solicited and answers provided to the satisfaction of the patient/family/POA.
[2025-05-30] MEDS: ceFAZolin 2 GM in SODIUM CHLORIDE 0.9% IV 50 ML 100 ML IVPB (12:32)
[2025-05-30] MEDS: LIDO 1%/EPINEPHRINE 1:100,000 20 ML VIAL 30 ML INFILTRATE (12:32)
[2025-05-30] MEDS: NACL 0.9% IRRIG POUR BOTTLE 900 ML, GENTAMICIN SULFATE INJ 160 MG, ceFAZolin 2 GM, POVI... IRRIGATION (12:32)
--- NOTE | 2025-05-30 13:05 | S_PTH ---
PATIENT: Kimberly Costa LOC: [facility] U#:[id number] AGE/SX: 54/F ROOM: RE05/30/[address]: Bipin Sargent MD : 1970 BED: DIS: 05/30/2025 SPEC #: [id number] RECD: 05/30/25 13:56 STATUS: STELLA REQ #: [id number] VERN: 05/30/25 13:[address]: Bipin Sargent DEPT: [facility] Surgical RECD BY: Gissel Chow Tissues: A - Breast Capsule Procedures: Hematoxylin and Eosin Stain Gross and Microscopic Level 3
== END 2025-05-30 15:17 | disposition home or self-care (01) ==
PROVIDERS: Visit Provider Surgery Plastic and Reconstructive Surgery
PROC: (CPT 19371; principal; 2025-05-30 13:30)
DX: T85.41XA Breakdown (mechanical) of breast prosthesis and implant, initial encounter (principal); Y83.8 Other surgical procedures as the cause of abnormal reaction of the patient, or of later complication, without mention of misadventure at the time of the procedure
CPT/HCPCS: 19371; 19325; 19328; 88304; J0690; J1100; J1171; J1580; J2003; J2004; J2250; J2405; J2704; J3010; J7120